=== PATIENT | female | born 1950 | race Caucasian/White ===

== ENCOUNTER 2018-03-06 21:05 | Inpatient (IN) ==
[2018-03-06] MEDS ORDERED: ONDANSETRON 4 MG/2 ML INJECTION IVP ONE (22:20)
[2018-03-06] MEDS ORDERED: NS 1,000 ML IV ONE (22:20)
[2018-03-06] MEDS ORDERED: KETOROLAC 30 MG/ML INJECTION IVP ONE (22:20)
--- NOTE | 2018-03-06 22:29 | Emergency Department Report ---
Abdominal Pain HPI - General Chief Complaint: Abdominal Pain Stated Complaint: vom, lower left abdom pain, leg cramping Time Seen by Provider: 03/06/18 22:02 Source: patient, family, RN notes reviewed, old records reviewed Mode of arrival: ambulatory Limitations: no limitations - History of Present Illness HPI narrative: 68yo woman presents to the ER for evaluation of LLQ abdominal pain. Pt ate around 1200 today; by 1330, she had severe, crampy, colicky abd pain. Pt has had similar sx intermittently for the last 5 mos. Pt has been evaluated for this by her PCM. Has had labs, colonoscopy and EGD. Pt was dx'ed with diverticulosis without -itis. No other dx made. Pt presents tonight, because her pain has caused N/V so severe that she hasn't had anything to eat since noon. Pt tried a TUMS without relief. Has not tried other meds 2/2 nausea. - Related Data Home Medications Medication Instructions Recorded Confirmed aspirin 81 mg tablet,delayed 81 mg PO DAILY tab 01/23/17 02/15/18 release multivitamin tablet 1 cap PO QAM 01/23/17 02/15/18 niacin ER 500 mg capsule,extended 500 mg PO .q HS cap 01/23/17 02/15/18 release nitrofurantoin 1 cap PO BID PRN cap 01/23/17 02/15/18 monohydrate/macrocrystals 100 mg capsule omega 6-zan-zui-fish oil 1,000 mg 3 cap PO DAILY cap 01/23/17 02/15/18 (120 mg-180 mg) capsule red yeast rice 600 mg tablet 1,200 mg PO DAILY tab 01/23/17 02/15/18 olmesartan 20 mg tablet 20 mg PO .1/2 BID tab 03/19/17 02/15/18 Flonase (Fluticasone) 50 mcg nasal 100 mcg INTRANASAL BID PRN 02/13/18 02/15/18 spray Vitamin D3 (cholecalciferol) 1,000 1,000 unit PO DAILY 02/13/18 02/15/18 unit capsule calcium carbonate 600 mg calcium 600 mg PO BID tab 02/13/18 02/15/18 (1,500 mg) tablet osteo biflex with tumeric PO BID 02/13/18 02/15/18 Previous Rx's Medication Instructions Recorded levothyroxine 112 mcg tablet 112 mcg PO DAILY #90 tab 12/11/17 Allergies Allergy/AdvReac Type Severity Reaction Status Date / Time clindamycin [From Cleocin] Allergy Verified 02/13/18 11:08 Penicillins Allergy Verified 02/13/18 11:08 sulfamethoxazole Allergy Verified 02/13/18 11:08 [From Bactrim] trimethoprim [From Bactrim] Allergy Verified 02/13/18 11:08 Review of Systems All systems: reviewed and negative except as stated Gastrointestinal: Reports: as per HPI, abdominal pain, nausea, vomiting. Denies : diarrhea, constipation, hematemesis, melena, hematochezia [facility] Patient Stated Medical History Hypertension Yes Anemia Yes Clinic Medical History Hypercholesterolemia (Chronic Medical) Hypothyroid (Chronic Medical) Hypertension (Chronic Medical) Surgical History: [id number], 1986. low back surgery-2004, 2002. Appendectomy-1969 Family History: Family History Father High blood pressure COPD (chronic obstructive pulmonary disease) Stroke Mother Alzheimer's dementia Brother Aortic dissection - Social History Smoking status: Never smoker Housing: house Household members: spouse Physical Exam - Limitations Limitations: no limitations - General General appearance: alert, in no apparent distress - Normal Exams: Head:: Normocephalic without trauma Eyes:: Pupils are PERRLA w/ EOMI, No scleral icterus, irritation, or foreign bodies noted ENMT:: No facial trauma, nasal exudates, pharyngeal erythema, or exudates are noted Neck:: Full range of motion, without adenopathy Lymphatic:: No lymphadenopathy Musculoskeletal:: No tenderness, or deformity noted Integumentary:: No rashes, hives, or bruising noted Neurological:: Patient is alert, and oriented Psychiatric:: Patient exhibits, appropriate attention - Chest Chest inspection: Present: normal inspection, symmetric chest wall rise. Absent : tenderness, rash - Respiratory Respiratory exam: Present: normal lung sounds bilaterally. Absent: respiratory distress, wheezes, stridor, prolonged expiratory phase, crackles - Cardiovascular Cardiovascular exam: Present: regular rate, normal rhythm, normal heart sounds. Absent: rubs, gallop, clicks - Abdominal Exam Abdominal exam: Present: soft, tenderness, normal bowel sounds. Absent: distention, guarding, rebound, rigidity, heel tap sign, Ortega's sign, Rovsing' s sign, tenderness at McBurney's Point, ascites Abdominal tenderness: Present: LLQ, epigastrium, moderate Course - Consultations Consultation #1: Te Telemed: Will admit inpt for SBO. Time: 00:14 Vital Signs Temperature 98.4 F 03/06/18 22:03 Pulse Rate 80 03/06/18 22:03 Respiratory Rate 18 03/06/18 22:03 Blood Pressure 108/67 03/06/18 22:03 Pulse Oximetry 96 03/06/18 22:03 Temperature 98.4 F 03/06/18 22:03 Pulse Rate 80 03/06/18 22:03 Respiratory Rate 18 03/06/18 22:03 Blood Pressure 108/67 03/06/18 22:03 Pulse Oximetry 96 03/06/18 22:03 Abdominal Pain - MDM Narrative Medical decision making narrative: Pt with SBO. Will contact hospitalist for admission for obs, NPO, and bowel rest. Hospitalist will admit for SBO. - Differential Diagnosis Differential diagnosis: Likely: abdominal pain, constipation, diverticulitis, gastroenteritis, small bowel obstruction. Unlikely: acute appendicitis, calculus of kidney, endometriosis, pancreatitis - Medical Records Attestation: I reviewed the patient's medical records. - Lab Data Attestation: I reviewed the patient's lab results. Result diagrams: 03/06/18 22:41 03/06/18 22:41 Lab Results 03/06/18 03/06/18 Range/Units 22:41 22:41 WBC 14.6 H D (4.5-11.0) T/MM3 RBC 4.01 (4.00-5.20) M/MM3 Hgb 12.6 (12-16) GM/DL Hct 36.7 (36-46) % MCV 91.5 (80-100) UM3 MCH 31.4 (26-34) UUG MCHC 34.3 (31-37) GM/DL RDW Std Deviation 43.3 (36.9-50.2) FL Plt Count 394 (130-400) T/MM3 MPV 9.4 (9.4-12.4) UM3 Immature Gran % (Auto) Not performed Neut % (Auto) Not performed Lymph % (Auto) Not performed [place] % (Auto) Not performed Eos % (Auto) Not performed Baso % (Auto) Not performed Neut # (Auto) Not performed Lymph # (Auto) Not performed [place] # (Auto) Not performed Eos # (Auto) Not performed Baso # (Auto) Not performed Abs Immat Gran (auto) Not performed Neutrophils % (Manual) 85.0 H (33-66) % Band Neutrophils % 1.0 (0-6) % Lymphocytes % (Manual) 14.0 L (23-45) % Neutrophils # (Manual) 12.4 H (1.8-7.7) T/MM3 Band Neutrophils # 0.1 T/MM3 Lymphocytes # (Manual) 2.0 (1-4.8) T/MM3 RBC Morph Comment Normal Turbidity < 20 (0-20) Sodium 137 (136-146) MEQ/L Potassium 4.1 (3.6-5) MEQ/L Chloride 103 (98-107) MEQ/L Carbon Dioxide 25 (22-30) MEQ/L Anion Gap 9 (5-15) meq/L BUN 27.0 H (7-17) MG/DL Creatinine 0.8 (0.7-1.2) mg/dL Estimated Creat Clear 50 (>50) mL/min GFR Calculation 72 (>60) mL/min BUN/Creatinine Ratio 34 H (6-26) RATIO Glucose 121 H (65-110) MG/DL Calculated Osmolality 270 (261-280) MOSM/KG Calcium 9.4 (8.4-10.2) MG/DL Icterus Index < 2 (0-7) Lipase 139 (23-300) U/L Specimen Hemolysis < 15 (0-25) - Radiology Data Attestation: I reviewed the patient's radiology results. KUB: Nonobstructing bowel gas pattern. No free air or fluid under the diaphragm. Large stool burden throughout colon. CT abd/pelv: IMPRESSION: Multiple dilated loops of small bowel out of proportion to the colon consistent with an early/incomplete small bowel obstruction with transition point in the left anterior pelvis. Disposition Clinical Impression: Small bowel obstruction Disposition: 02 To [facility] [place] Print Language: Persian Condition: Improved Prescriptions: No Action aspirin 81 mg tablet,delayed release 81 mg PO DAILY tab omega 5-ytc-orm-fish oil 1,000 mg (120 mg-180 mg) capsule 3 cap PO DAILY cap nitrofurantoin monohydrate/macrocrystals 100 mg capsule 1 cap PO BID PRN cap PRN Reason: uti red yeast rice 600 mg tablet 1,200 mg PO DAILY tab olmesartan 20 mg tablet 20 mg PO .1/2 BID tab levothyroxine 112 mcg tablet 112 mcg PO DAILY #90 tab osteo biflex with tumeric PO BID calcium carbonate 600 mg calcium (1,500 mg) tablet 600 mg PO BID tab Vitamin D3 (cholecalciferol) 1,000 unit capsule 1,000 unit PO DAILY multivitamin tablet 1 cap PO QAM niacin ER 500 mg capsule,extended release 500 mg PO .q HS cap Flonase (Fluticasone) 50 mcg nasal spray 100 mcg INTRANASAL BID PRN Referrals: Mayelin Blandon PA [Primary Care Provider] - Time of Disposition: 00:33 - Seen By: physician
[2018-03-06] MEDS: SALINE FLUSH 10ml SYRINGE IVF PRN (22:46)
[2018-03-07] MEDS ORDERED: MORPHINE SULFATE 2mg INJECTION IVP PRN (01:01)
[2018-03-07] MEDS ORDERED: BISACODYL 10 MG SUPPOSITORY RECTALLY ONE (01:01)
[2018-03-07] MEDS ORDERED: HYDROMORPHONE 2 MG/ML INJECTION IVP PRN (01:31)
--- NOTE | 2018-03-07 01:37 | History & Physical Report ---
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 Has had some intermittent pain , but not this severe and crampy. After ED pain meds still 4/10 with last BM 1400 8/ and no flatus since. Much N/V with no blood, and not nauseated now. No fevers or chills, no dysuria or cough. No CP or SOB Review of Systems All systems PM: 10-point ROS was reviewed, no additional remarkable complaints except Past Medical History Medical History: Medical History (Last Updated 03/07/18 @ 09:49 by Cristina Persaud, ALFONSO) Hypercholesterolemia (Chronic) Hypothyroid (Chronic) Hypertension (Chronic) Congenital bicuspid aortic valve Constipation Iron deficiency anemia Unintentional weight loss Surgical History: [id number], 1986. low back surgery-2004, 2002. Appendectomy-1969 Family History: Family History Father High blood pressure COPD (chronic obstructive pulmonary disease) Stroke Mother Alzheimer's dementia Brother Aortic dissection Family History: As Above (noted early CAD in father and mother dying with dementia) - Social History Smoking status: Never smoker Substance use type: does not use Housing: house Household members: spouse Medications Home Medications Medication Instructions Recorded Confirmed Type aspirin 81 mg tablet,delayed 81 mg PO DAILY tab 01/23/17 03/07/18 History release multivitamin tablet 1 cap PO QAM 01/23/17 03/07/18 History niacin ER 500 mg capsule,extended 500 mg PO .q HS cap 01/23/17 03/07/18 History release nitrofurantoin 1 cap PO BID PRN cap 01/23/17 03/07/18 History monohydrate/macrocrystals 100 mg capsule omega 3-qnq-ods-fish oil 1,000 mg 3 cap PO DAILY cap 01/23/17 03/07/18 History (120 mg-180 mg) capsule red yeast rice 600 mg tablet 1,200 mg PO DAILY tab 01/23/17 03/07/18 History olmesartan 20 mg tablet 10 mg PO BID tab 03/19/17 03/07/18 History levothyroxine 112 mcg tablet 112 mcg PO DAILY #90 tab 12/11/17 03/07/18 Rx Flonase (Fluticasone) 50 mcg nasal 100 mcg INTRANASAL BID PRN 02/13/18 03/07/18 History spray Vitamin D3 (cholecalciferol) 1,000 1,000 unit PO DAILY 02/13/18 03/07/18 History unit capsule calcium carbonate 600 mg calcium 1,200 mg PO DAILY tab 02/13/18 03/07/18 History (1,500 mg) tablet Cetirizine HCl [Zyrtec] 10 mg PO HS 03/07/18 03/07/18 History Allergies Allergy/AdvReac Type Severity Reaction Status Date / Time clindamycin [From Cleocin] Allergy Verified 03/07/18 00:45 Penicillins Allergy Verified 03/07/18 00:45 sulfamethoxazole Allergy Verified 03/07/18 00:45 [From Bactrim] trimethoprim [From Bactrim] Allergy Verified 03/07/18 00:45 hydromorphone [From Dilaudid] AdvReac Intermediate Pruritis Verified 03/07/18 13 :16 morphine AdvReac Intermediate Nausea and Verified 03/07/18 13:16 Vomiting Exam Vital Signs: Temperature 98.2 F 03/07/18 00:30 Pulse Rate 74 03/07/18 00:30 Respiratory Rate 18 03/07/18 00:30 Blood Pressure 103/63 03/07/18 00:30 Pulse Oximetry 97 03/07/18 00:30 Telemetry Rhythm: Sinus Rhythm Height/Weight/BMI: Height 1.63 m Weight 62.3 kg - Constitutional Present: mild distress - Routine HEENT Exam Head: Present: normocephalic, atraumatic Eye: Present: EOMI - Routine Respiratory Exam Present: CTA bilaterally - Routine Cardiovascular Exam Present: RRR, S1, S2, murmur Comments: 3/6 HSM LLSB murmur (she knows of MR murmur for 30 years) - Routine Abdominal Exam Present: soft Comments: hyperactive bowel sounds, not tympanitic but higher pitched. Tender but no guarding - Routine Extremities Exam Absent: cyanosis, clubbing - Routine Skin Exam Present: intact - Routine Neurological Exam Present: alert, oriented X3, CN II-XII intact Results - Labs CBC & Chem 7: 03/07/18 09:42 03/06/18 22:41 Assessment and Plan Assessment and Plan: 1. CT confirmed SBO--admit to inpatient with NPO, IVF, dulcolax supp and supportive care. If more emesis then NG to LIS. Repeat labs and this AM XR flat and upright. Certainly anatomic with prior abd surgeries but check TSH. Consult surgery prn. 2. Essential HTN--prior med 3. Dyslipidemia 4. Hypothyroidism--levothyroxine and check lab 5. Leukocytosis likely stress induced, check UA and monitor temp with repeat lab DVT prophylaxis DVT Prophylaxis: SCD's, Lovenox - Physician Narrative Physician: Loretta Donohue MD Narrative: Date: 03/07/18 Time: 1450 See note dictated earlier today for additional thoughts/updates. Hospital Course Summary Disclaimer: The visit summary below is not to be considered part of the above Progress Note.
[2018-03-07] MEDS: LR 1,000 ML IV SCH ×5 (02:09→16:32)
[2018-03-07] MEDS: SALINE FLUSH 10ml SYRINGE IVF PRN (02:09)
--- NOTE | 2018-03-07 08:06 | CT Scan Report ---
Indication: C/f SBO on KUB; WBC 14k PROCEDURE: CT abdomen pelvis w con: Encounter: Initial Comparison: October 11, 2017 Technique: Axial CT images were performed through the abdomen and pelvis after the administration of intravenous contrast. Coronal and sagittal two-dimensional reformats. Automated Exposure Control and Iterative Reconstruction dose reducing techniques were utilized. Contrast: Omnipaque 300 89 mL Findings: Mild atelectasis in the lung bases. The liver is normal. The gallbladder is unremarkable. The spleen, pancreas and adrenal glands are within normal limits. Kidneys are normal apart from a small left lower pole renal cyst. No abdominal or pelvic 950. Bladder is normal. Uterus is unremarkable. No free fluid. There are multiple fluid-filled loops of small bowel and fluid within the cecum and right colon. Transition from dilated to nondilated small bowel in the left anterior pelvis seen on axial image #70. No free air. Postoperative changes in the lower lumbar spine. Impression: Evidence of a partial small bowel obstruction with transition in the left lower pelvis. There may be a superimposed gastroenteritis. There is a preliminary report by [employer] radiologic. .
--- NOTE | 2018-03-07 08:08 | XRay Report ---
Indication: LLQ pain PROCEDURE: XR KUB w upright: Encounter: Initial Comparison: CT abdomen and pelvis from the same date Findings: Scattered air-fluid levels seen in the small and large bowel. Moderate stool in the colon. Dilated small bowel left abdomen up to 3.5 cm in diameter. Lung bases are grossly clear. Degenerative change and scoliosis in the lumbar spine with posterior L4-L5 fusion and decompression. Impression: Findings concerning for an early or partial small bowel obstruction. .
[2018-03-07 08:46] VITALS: BMI 24.3
[2018-03-07] MEDS: ENOXAPARIN 40 MG/0.4 ML INJECTION SQ SCH (09:00)
[2018-03-07] MEDS: LEVOTHYROXINE 112 MCG TABLET PO SCH (09:00)
--- NOTE | 2018-03-07 09:44 | History & Physical Report ---
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 Patient reports she has had intermittent episodes of abdominal pain since October 2017. She reports pain is often left sided. She underwent a EGD and colonoscopy in November 2017 and [address] care of Dr[address] Nicolasa Aguilar. At that time she also had a CT scan of the abdomen and pelvis. All of the studies are reported to be negative. The pain kind of " down" over the last few months. Over the past 2 weeks she has had some mild discomfort, however, significant change yesterday following lunch. She developed severe left lower quadrant abdominal pain followed by 2 episodes of vomiting. She felt like she had fever and chills at that time. Pain got so severe last evening. She presented to [facility] emergency room for acute evaluation. Only emergency room further evaluation was performed. CBC revealed leukocytosis with a white count of 18.6, 85% neutrophils, 1% band. Chemistry panel normal other than glucose of 121. LFTs and liver function is normal, lipase normal. Urinalysis unremarkable. CT scan of the abdomen and pelvis revealed evidence of a partial small bowel obstruction with transition in the left lower pelvis. She was started on IV fluids and given pain medication. She was admitted under the tele-hospitalist overnight for ongoing evaluation and treatment. Aimee is seen this morning while resting in bed. She reports she has continued left lower quadrant pain However, it is decreased now 2-3 out of 10. She also reports having an unintentional weight loss over the last 2 years. She is unsure exactly how much greater than 10 pounds. Review of Systems All systems PM: 10-point ROS was reviewed, no additional remarkable complaints except - Constitutional Constitutional: Present: chills, fever(s) - Gastrointestinal Gastrointestinal: Present: as per HPI, abdominal pain (LLQ) Past Medical History Medical History: Medical History (Last Updated 03/07/18 @ 09:49 by Cristina Persaud APRN) Hypercholesterolemia (Chronic) Hypothyroid (Chronic) Hypertension (Chronic) Congenital bicuspid aortic valve Constipation Iron deficiency anemia Unintentional weight loss Surgical History: [id number], 1986. low back surgery-2004, 2002. Appendectomy-1969. [id number] 2018-Dr. Nicolasa Aguilar. Echocardiogram- 2010. EF 60%, congenital bicuspid aortic valve with mild aortic insufficiency. Mild to moderate mitral insufficiency Family History: Family History Father High blood pressure COPD (chronic obstructive pulmonary disease) Stroke Mother Alzheimer's dementia Brother Aortic dissection Family History: As Above (noted early CAD in father and mother dying with dementia) - Social History Smoking status: Never smoker Substance use type: does not use Alcohol intake frequency: does not drink Housing: house Household members: spouse Current occupational status: retired (registered nurse) Social history: She is a retired registered nurse. She is active resides with her at home owns horses. Primary care provider-Mayelin Conrad at [facility] Medications Home Medications Medication Instructions Recorded Confirmed Type aspirin 81 mg tablet,delayed 81 mg PO DAILY tab 01/23/17 03/07/18 History release multivitamin tablet 1 cap PO QAM 01/23/17 03/07/18 History niacin ER 500 mg capsule,extended 500 mg PO .q HS cap 01/23/17 03/07/18 History release nitrofurantoin 1 cap PO BID PRN cap 01/23/17 03/07/18 History monohydrate/macrocrystals 100 mg capsule omega 4-ukr-kls-fish oil 1,000 mg 3 cap PO DAILY cap 01/23/17 03/07/18 History (120 mg-180 mg) capsule red yeast rice 600 mg tablet 1,200 mg PO DAILY tab 01/23/17 03/07/18 History olmesartan 20 mg tablet 10 mg PO BID tab 03/19/17 03/07/18 History levothyroxine 112 mcg tablet 112 mcg PO DAILY #90 tab 12/11/17 03/07/18 Rx Flonase (Fluticasone) 50 mcg nasal 100 mcg INTRANASAL BID PRN 02/13/18 03/07/18 History spray Vitamin D3 (cholecalciferol) 1,000 1,000 unit PO DAILY 02/13/18 03/07/18 History unit capsule calcium carbonate 600 mg calcium 1,200 mg PO DAILY tab 02/13/18 03/07/18 History (1,500 mg) tablet Cetirizine HCl [Zyrtec] 10 mg PO HS 03/07/18 03/07/18 History Allergies Allergy/AdvReac Type Severity Reaction Status Date / Time clindamycin [From Cleocin] Allergy Verified 03/07/18 00:45 Penicillins Allergy Verified 03/07/18 00:45 sulfamethoxazole Allergy Verified 03/07/18 00:45 [From Bactrim] trimethoprim [From Bactrim] Allergy Verified 03/07/18 00:45 hydromorphone [From Dilaudid] AdvReac Intermediate Pruritis Verified 03/07/18 13 :16 morphine AdvReac Intermediate Nausea and Verified 03/07/18 13:16 Vomiting Exam Vital Signs: Temperature 97.8 F 03/07/18 07:59 Pulse Rate 59 L 03/07/18 09:10 Respiratory Rate 20 03/07/18 07:59 Blood Pressure 107/67 03/07/18 09:10 Pulse Oximetry 97 03/07/18 07:59 Height/Weight/BMI: Height 1.63 m Weight 64.2 kg Body Mass Index 24.3 - Constitutional Present: no acute distress, well nourished, well developed - Routine HEENT Exam Eye: Present: EOMI ENT: Present: mucous membranes moist, dentition normal - Routine Respiratory Exam Present: CTA bilaterally. Absent: wheezes - Routine Cardiovascular Exam Present: RRR, S1, S2, murmur - Routine Abdominal Exam Present: soft, tenderness (left lower quadrant, left upper quadrant), non distended. Absent: normoactive bowel sounds (hypoactive bowel sounds) - Routine Extremities Exam Present: no edema, full ROM, pulses intact - Routine Back/Spine/Pelvis Exam Back/Spine: Present: full ROM - Routine Skin Exam Present: intact, dry, warm - Routine Neurological Exam Present: alert, oriented X3, CN II-XII intact, moving all extremities - Routine Psychiatric Exam Present: normal affect, normal thought process, cooperative Results - Labs CBC & Chem 7: 03/07/18 09:42 03/06/18 22:41 Assessment and Plan (1) Small bowel obstruction Current visit: Yes Status: Acute Assessment and Plan: Impression Eypyoeq-nx-Qknda bowel obstruction Leukocytosis-present on admission Left-sided abdominal pain Hypertension Congenital bicuspid aortic valve Dyslipidemia Hypothyroidism Iron def anemia Constipation Plan Patient is admitted inpatient service in the care of the hospitalist. She currently remains nothing by mouth and has received IV fluids for hydration. We will recheck a CBC this morning as she did have leukocytosis Consultation placed to Dr. Vargas for surgical evaluation and recommendations Dilaudid as needed for pain control Lovenox and SCDs to bilateral lower extremity for DVT prophylaxis Will discuss further orders and plan of care with attending, Dr. Donohue At time of discharge medical care will return to primary care provider, Mayelin Saldivar at [facility] DVT Prophylaxis: SCD's, Lovenox Resuscitation Status: Full Code - Physician Narrative Physician: Loretta Donohue MD Narrative: Date: 03/07/18 Time: 1450 I have independently evaluated and examined this patient. I reviewed the chart, the patient's history, and the SECURITY SME/PA's documented findings as above. We discussed and formulated the assessment and plan as above with additions as below: Aimee was seen midmorning at which time she described intense abdominal pain yesterday with nausea and vomiting 2 prompting ER evaluation; improvement overnight but progressive return of pain this morning. She reported having 2 small stools overnight and this morning the second of which was loose and had some bright red blood. Prior evaluation as described above. Intermittent symptoms for months with general escalation over the past 2 weeks. NAD, alert, conjunctiva clear, sclera anicteric Regular rhythm, respirations nonlabored Abdomen soft, mildly distended, tender to palpation in the left mid lateral abdomen with guarding; tinkling bowel sounds CT abdomen/pelvis reviewed by myself-multiple dilated fluid-filled loops of small bowel; fluid in the cecum and right colon; radiology describes transition zone from dilated to nondilated small bowel in the left anterior pelvis. KUBs this a.m. also reviewed by myself persistent small bowel air-fluid levels c /w SBO. Continue fluids, antiemetics, pain medications as needed. Surgical consultation- -> diagnostic laparoscopy. Discussed with Dr. Vargas. Hospital Course Summary Disclaimer: The visit summary below is not to be considered part of the above Progress Note. Hospital Course: Impression Mtcxiak-xs-Sigmn bowel obstruction Leukocytosis-present on admission Left-sided abdominal pain Hypertension Congenital bicuspid aortic valve Dyslipidemia Hypothyroidism Iron def anemia Constipation Plan Patient is admitted inpatient service in the care of the hospitalist. She currently remains nothing by mouth and has received IV fluids for hydration. We will recheck a CBC this morning as she did have leukocytosis Consultation placed to Dr. Vargas for surgical evaluation and recommendations Dilaudid as needed for pain control Lovenox and SCDs to bilateral lower extremity for DVT prophylaxis Will discuss further orders and plan of care with attending, Dr. Donohue At time of discharge medical care will return to primary care provider, Mayelin Saldivar at [facility] Addendum-taken to the operating room by Dr. Vargas.
[2018-03-07] MEDS: OLMESARTAN 20 MG TABLET PO SCH ×2 (10:02→21:20)
--- NOTE | 2018-03-07 10:03 | XRay Report ---
Indication: SBO PROCEDURE: XR abdomen 2V: Encounter: Initial Comparison: March 06, 2018 Findings: Increased overall bowel gas seen in small and large bowel. Contrast material seen in the renal collecting systems and bladder. There are persistent small bowel air-fluid levels with small bowel dilatation up to 3.2 cm, similar to the prior exam. Lung bases are clear. No free air. Impression: Persistent small bowel air-fluid levels probably due to partial small bowel obstruction. .
--- NOTE | 2018-03-07 10:25 | General Surgery Consult Note ---
Consult date: 03/07/18 Attending Physician: Loretta Donohue MD [facility] Patient Stated Medical History Hypertension Yes Anemia Yes Clinic Medical History (Last Updated 03/07/18 @ 09:49 by Cristina Persaud APRN) Hypercholesterolemia (Chronic Medical) Hypothyroid (Chronic Medical) Hypertension (Chronic Medical) Congenital bicuspid aortic valve (patient denies) (Acute Medical) Constipation (Acute Medical) Iron deficiency anemia (Acute Medical) Unintentional weight loss (Acute Medical) Medical History Updates: Sheila Valve Prolapse Surgical History: [id number], 1986. low back surgery-2004, 2002. Appendectomy-1969. Colonoscopy-normal 11/2017 Dr. Nicolasa Aguilar. EGD normal-November 2017-Dr. Nicolasa Aguilar. Echocardiogram-2010. EF 60%, congenital bicuspid aortic valve with mild aortic insufficiency. 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) Medications Home Medications Medication Instructions Recorded Confirmed Type aspirin 81 mg tablet,delayed 81 mg PO DAILY tab 01/23/17 03/07/18 History release multivitamin tablet 1 cap PO QAM 01/23/17 03/07/18 History niacin ER 500 mg capsule,extended 500 mg PO .q HS cap 01/23/17 03/07/18 History release nitrofurantoin 1 cap PO BID PRN cap 01/23/17 03/07/18 History monohydrate/macrocrystals 100 mg capsule omega 5-[id number]-[id number]-fish oil 1,000 mg 3 cap PO DAILY cap 01/23/17 03/07/18 History (120 mg-180 mg) capsule red yeast rice 600 mg tablet 1,200 mg PO DAILY tab 01/23/17 03/07/18 History olmesartan 20 mg tablet 10 mg PO BID tab 03/19/17 03/07/18 History levothyroxine 112 mcg tablet 112 mcg PO DAILY #90 tab 12/11/17 03/07/18 Rx Flonase (Fluticasone) 50 mcg nasal 100 mcg INTRANASAL BID PRN 02/13/18 03/07/18 History spray Vitamin D3 (cholecalciferol) 1,000 1,000 unit PO DAILY 02/13/18 03/07/18 History unit capsule calcium carbonate 600 mg calcium 1,200 mg PO DAILY tab 02/13/18 03/07/18 History (1,500 mg) tablet Cetirizine HCl [Zyrtec] 10 mg PO HS 03/07/18 03/07/18 History Allergies Allergy/AdvReac Type Severity Reaction Status Date / Time clindamycin [From Cleocin] Allergy Verified 03/07/18 00:45 Penicillins Allergy Verified 03/07/18 00:45 sulfamethoxazole Allergy Verified 03/07/18 00:45 [From Bactrim] trimethoprim [From Bactrim] Allergy Verified 03/07/18 00:45 Review of Systems 10-point ROS: negative except for HPI and the following: - Cardiovascular Cardiovascular: Present: palpitations (if she drinks too much caffiene ), other (murmur, vitral valve states "untreated") - Gastrointestinal Gastrointestinal: Present: blood in stools (with BM this morning, none before this morning), vomiting (yesterday), other (occasional heartburn) - Musculoskeletal Musculoskeletal: Present: back pain (occasional if she lifts too much), joint pain (hips and hands) - Neurological Neurological: Present: other (tension headaches, Migraine headache if she drinks red wine) - Vital Signs Last Vital Signs Temp 97.8 F 03/07/18 07:59 Pulse 59 L 03/07/18 09:10 Resp 20 03/07/18 07:59 BP 107/67 03/07/18 09:10 Pulse Ox 97 03/07/18 07:59 - Laboratory Result Diagrams: 03/07/18 09:42 03/06/18 22:41 General Surgery Results - Results Labs: 03/07/18 09:42 03/06/18 22:41
--- NOTE | 2018-03-07 13:45 | Anesthesia Preoperative Report ---
Anesthesia Preoperative Record - Date and Time Date: 03/07/18 Preoperative Diagnosis: SBO Proposed Procedure: Diagnostic Laparoscopy NPO Since Date: 03/07/18 NPO Since Time: 00:00 Allergies/Adverse Reactions: Allergies Allergy/AdvReac Type Severity Reaction Status Date / Time clindamycin [From Cleocin] Allergy Verified 03/07/18 00:45 Penicillins Allergy Verified 03/07/18 00:45 sulfamethoxazole Allergy Verified 03/07/18 00:45 [From Bactrim] trimethoprim [From Bactrim] Allergy Verified 03/07/18 00:45 hydromorphone [From Dilaudid] AdvReac Intermediate Pruritis Verified 03/07/18 13 :16 morphine AdvReac Intermediate Nausea and Verified 03/07/18 13:16 Vomiting - Vital Signs Vital Signs: Temperature 98.0 F 03/07/18 12:19 Pulse Rate 60 03/07/18 12:19 Respiratory Rate 16 03/07/18 12:19 Blood Pressure 123/64 03/07/18 12:19 Pulse Oximetry 97 03/07/18 12:19 Height and Weight: Height 1.63 m Weight 64.2 kg Body Mass Index 24.3 - Medications Inpatient Medications: Current Medications Enoxaparin Sodium (Lovenox) 40 mg SQ DAILY [facility] Last Admin: 03/07/18 09:00 Dose: 40 mg Hydromorphone HCl (Dilaudid) 0.25 - 1 mg IVP Q3H PRN PRN Reason: Pain Lactated Ringer's (Lactated Ringers) 1,000 mls @ 100 mls/hr IV .Q10H [facility] Last Admin: 03/07/18 12:16 Dose: Not Given Levothyroxine Sodium (Synthroid) 112 mcg PO ACB [facility] Last Admin: 03/07/18 09:00 Dose: 112 mcg Olmesartan (Benicar) 10 mg PO BID [facility] Last Admin: 03/07/18 10:02 Dose: Not Given Sodium Chloride (Iv Flush) 10 - 80 ml IVF PRN PRN PRN Reason: Flushing Last Admin: 03/07/18 02:09 Dose: 10 ml Home Medications: Home Medications Medication Instructions Recorded Confirmed Type aspirin 81 mg tablet,delayed 81 mg PO DAILY tab 01/23/17 03/07/18 History release multivitamin tablet 1 cap PO QAM 01/23/17 03/07/18 History niacin ER 500 mg capsule,extended 500 mg PO .q HS cap 01/23/17 03/07/18 History release nitrofurantoin 1 cap PO BID PRN cap 01/23/17 03/07/18 History monohydrate/macrocrystals 100 mg capsule omega 0-uir-ywz-fish oil 1,000 mg 3 cap PO DAILY cap 01/23/17 03/07/18 History (120 mg-180 mg) capsule red yeast rice 600 mg tablet 1,200 mg PO DAILY tab 01/23/17 03/07/18 History olmesartan 20 mg tablet 10 mg PO BID tab 03/19/17 03/07/18 History levothyroxine 112 mcg tablet 112 mcg PO DAILY #90 tab 12/11/17 03/07/18 Rx Flonase (Fluticasone) 50 mcg nasal 100 mcg INTRANASAL BID PRN 02/13/18 03/07/18 History spray Vitamin D3 (cholecalciferol) 1,000 1,000 unit PO DAILY 02/13/18 03/07/18 History unit capsule calcium carbonate 600 mg calcium 1,200 mg PO DAILY tab 02/13/18 03/07/18 History (1,500 mg) tablet Cetirizine HCl [Zyrtec] 10 mg PO HS 03/07/18 03/07/18 History Is Patient on Beta Cruz?: No - Medical History Respiratory: DENIES: Sleep Apnea Cardiovascular: Reports: Hypertension, High Cholesterol Neuro/Musculoskeletal: Reports: Back Problems Renal/Endocrine: Reports: Thyroid Disease - Surgical History GI Surgery/Treatments: Reports: Appendectomy Musculoskeletal Surgery/Tx: Reports: Other (RODS/SCREWS L4-L5 2004) Reproductive Surgery/Treatment: Reports: Section (X2) Anesthesia Reactions: None Hx Family Anesthesia Reaction: No History of Motion Sickness: No - Social History Smoking Status: Never smoker Hx Chewing Tobacco Use: No Second Hand Exposure: No Substance Use Type: does not use Alcohol Intake: current Alcohol Intake Frequency: holidays/special occasions only - Pertinent Findings Laboratory: CBC and BMP 03/07/18 09:42 03/06/18 22:41 BMP 03/06/18 22:41 Sodium 137 Potassium 4.1 Chloride 103 Carbon Dioxide 25 BUN 27.0 H Creatinine 0.8 Glucose 121 H Calcium 9.4 Liver Function 03/06/18 Range/Units 22:41 Total Bilirubin 1.20 (0.20-1.30) MG/DL AST 32 (14-36) U/L ALT 22 (1-35) U/L Alkaline Phosphatase 66 (38-126) U/L Albumin 4.3 (3.5-5.0) g/dL Urine 03/07/18 Range/Units 02:33 Urine Color Yellow (YELLOW) Urine Clarity Clear Urine pH 5.0 (5.0-8.0) Ur Specific [place] 1.010 L (1.015-1.025) Urine Protein Negative (NEGATIVE) Urine Glucose (UA) Negative (NEGATIVE) EKG: Sinus Rhythm - Physical Exam Respiratory Exam: Present: lungs clear Cardiovascular Exam: Present: regular rate and rhythm - Airway Assessment Mallampati Score: II TMD: 3 Fingerbreadths Neck Extension: good Overall Assessment: no airway concerns - ASA ASA Score: 2 - Plan Anesthesia: General Inhalation Gases - Discussion Discussion: Discussed risks/options/alternatives of anesthesia and questions answered. Patient consents. Nursing pain assessment noted. Present for Discussion: spouse Attestation Statement: Prior to the delivery of any anesthetic medication, I examined the patient, developed the plan, obtained the patient's consent and discussed the risk and benefits of the procedure with the patient/guardian. - Additional Information Seen by Anesthesia: Yes
[2018-03-07] MEDS ORDERED: BUPIVACAINE 0.5%/EPI 1:200,000 INJ 30ml SDV ONE (14:07)
[2018-03-07] MEDS ORDERED: ROCURONIUM 50 MG/5 ML INJECTION IVP ONE (14:09)
[2018-03-07] MEDS ORDERED: SUCCINYLCHOLINE 20mg/mL 10mL INJECTION ONE (14:09)
[2018-03-07] MEDS ORDERED: MIDAZOLAM 2mg/2ml INJECTION ONE (14:11)
[2018-03-07] MEDS ORDERED: FentaNYL 250 MCG/5 ML INJECTION ONE (14:11)
[2018-03-07] MEDS ORDERED: EPHEDRINE 50mg/ml INJECTION ONE (14:19)
[2018-03-07] MEDS ORDERED: BUPIVACAINE 0.5%/EPI 1:200,000 INJ 30ml SDV INFIL ONE (14:24)
[2018-03-07] MEDS ORDERED: ONDANSETRON 4 MG/2 ML INJECTION IVP PRN (14:30)
[2018-03-07] MEDS ORDERED: DiphenhydrAMINE 50 MG/ML INJECTION IVP PRN (14:30)
[2018-03-07] MEDS ORDERED: ACETAMINOPHEN IV 1,000 MG/100 ML VIAL IV ONE (14:31)
--- NOTE | 2018-03-07 15:26 | Operative Note ---
DATE OF CONSULTATION 03/07/2018 FINDINGS Mrs. Peters is a 68-year-old female whom I was asked to see today as a result of her history and physical findings of abdominal pain in conjunction with an abnormal CT scan obtained last evening indicative of high-grade small-bowel obstruction. Mrs. Peters informs me that she has been having pain now intermittently for several months. The patient states that over the last five months or so she has been experiencing intermittent abdominal pain. This pain is described as being more so within her left lower quadrant. Pain is made worse after eating. She has had several episodes throughout the last several months where she has had a component of nausea and vomiting after eating. She has undergone a prior EGD and colonoscopy in [place] as a result of her history for intermittent abdominal pain. The patient states her EGD and colonoscopy were normal. The patient states that throughout this week she has had a component of abdominal pain made worse after eating. Pain has been present more so again within her left lower quadrant. Patient states that yesterday she developed significant vomiting and 10 out of 10 pain and therefore presented to our emergency room for further evaluation. The patient did undergo a CT scan which, as stated above, was consistent with that of a partial small-bowel obstruction. Patient subsequently was admitted for further evaluation. Patient states that earlier her pain had improved. Patient states that this morning, however, her pain has become more severe in nature once again. PAST MEDICAL HISTORY, PAST SURGICAL HISTORY, MEDICATIONS, ALLERGIES, SOCIAL HISTORY, FAMILY HISTORY, REVIEW OF SYSTEMS Performed by my nurse practitioner, Con Oconnell APRN. PHYSICAL EXAMINATION GENERAL: Mrs. Peters is a 68-year-old female who did not appear to be in acute distress. VITAL SIGNS: Temperature 97.8, pulse 59, respirations 20, blood pressure 107/67 , SAO2 97% on room air. HEENT: Normocephalic. Pupils are equally round and react to light and accommodation. NECK: Supple without lymphadenopathy. CHEST: Clear to auscultation bilaterally. HEART: Auscultation of her heart did reveal a murmur. Normal S1 and S2. ABDOMEN: Visualization of the abdomen does reveal a well-healed prior surgical incision within her right lower quadrant of her abdomen consistent with a prior history for appendectomy. No other visible abnormalities were noted. Palpation of the abdomen did reveal a fair amount of tenderness throughout the entire abdomen. Pain seemed to be worse, however, with palpation in the left lower quadrant. Did have a component of voluntary guarding. Did not appreciate any evidence, however, for involuntary guarding or rebound tenderness. EXTREMITIES: Without clubbing, cyanosis, or edema. NEURO: Cranial nerves II-XII grossly intact. Patient is without focal motor or sensory deficits. LABORATORY/RADIOGRAPHIC EVALUATION The patient had a CBC obtained yesterday and her white count was 14,000. Today her white count is 7.5. Hemoglobin is 10.4. CMP was obtained and found to be without marked abnormalities with exception that her BUN was elevated at 27.0. UA was obtained and found to be essentially within normal limits. CT scan of her abdomen and pelvis was obtained. I did review a prior CT scan from October of this year as well as a CT scan from last evening. The CT scan of October did not reveal any marked abnormalities. The CT scan yesterday did reveal marked small bowel distention with an obvious transition zone being noted within the lower abdomen. Radiology stated a transition zone was present from dilated and nondilated small bowel within the left anterior pelvis. There was no evidence for free air. Findings were consistent with a partial small- bowel obstruction with transition in the left lower pelvis. ASSESSMENT 68-year-old female with five-month history of intermittent abdominal pain who presents with onset of severe abdominal pain, nausea, vomiting and CT scan evidence for small bowel obstruction. PLAN Diagnostic laparoscopy, possible laparotomy. I informed the patient that as a general rule when someone presents with a suspected partial small-bowel obstruction I attempt to initially proceed with what I call a "Gastrografin challenge" where I will give the patient Gastrografin to see if it does progress through her small bowel and into her colon. In her situation, however, I do not feel that this would be the best course of action. Given her chronicity of pain over the last five months and her obvious CT scan that does reveal massively dilated small bowel proximally and normal small bowel distally, I do feel that there is an intraabdominal process present that has been causing her symptomatology over the last five months. Specifically, I do feel that she likely has an abdominal adhesion resulting in high-grade small-bowel obstruction. It was therefore my recommendation that we go ahead today and proceed with a diagnostic laparoscopy , possible laparotomy, with probable lysis of adhesions. I did discuss in detail with the patient what this procedure would entail and its associated risks which included but were not inclusive of bleeding, infection, as well as potential for bowel resection and injury to adjacent structures. The patient understood and agreed with the proposed plan at this time. MASON
[2018-03-07] MEDS ORDERED: MetroNIDAZOLE PB 500 MG/100 ML BAG IV ONE (16:30)
[2018-03-07] MEDS ORDERED: DEXAMETHASONE 4 MG/ML INJECTION ONE (16:45)
[2018-03-07] MEDS ORDERED: ONDANSETRON 4 MG/2 ML INJECTION ONE (16:45)
[2018-03-07] MEDS ORDERED: SUGAMMADEX 200mg/2ml INJECTION IVP ONE (16:45)
[2018-03-07] MEDS ORDERED: HYDROMORPHONE 2 MG/ML INJECTION ONE (16:52)
--- NOTE | 2018-03-07 17:09 | General Surgery Procedure Note ---
Date of Procedure: 03/07/18 Surgeon: Sam Editing Internship: Con Clement APRN Postoperative Diagnosis: Small Bowel Obstruction Procedure: diagnostic laparoscopy with conversion to open laparotomy and small bowel resection Estimated Blood Loss: See Anesthesia Record.
[2018-03-07] MEDS ORDERED: ONDANSETRON ODT 4 MG TABLET PO PRN (17:17)
--- NOTE | 2018-03-07 17:29 | Anesthesia Postoperative Note ---
- Date and Time Date: 03/07/18 Time: 17:29 - Status Patient Participated in Evaluation: Patient Participated in Person Vital Signs: Temperature 98.4 F 03/07/18 17:05 Pulse Rate 63 03/07/18 17:25 Respiratory Rate 12 03/07/18 17:25 Blood Pressure 100/58 03/07/18 17:25 Pulse Oximetry 94 03/07/18 17:25 Respiratory Function: Airway Patent Cardiovascular Function: Regular Pulse EKG: Sinus Rhythm Mental Status: Alert and Oriented Pain Intensity: 4 Hydration: IV Infusing Nausea/Vomiting: None Complications During Recover: None Apparent - Follow-Up Instructions Instructions: Per Surgeon
[2018-03-07] MEDS: METOCLOPRAMIDE 10mg/2ml INJECTION IVP PRN (17:30)
[2018-03-07] MEDS: NS 1,000 ML IV SCH ×2 (18:07→22:45)
[2018-03-07] MEDS: KETOROLAC 15 MG/ML INJECTION IVP PRN (22:03)
[2018-03-07] MEDS: D5-1/2NS 1,000 ML IV SCH (22:47)
[2018-03-08] MEDS: HYDROMORPHONE 2 MG/ML INJECTION IVP PRN ×5 (01:01→20:21)
[2018-03-08] MEDS: SALINE FLUSH 10ml SYRINGE IVF PRN (07:50)
[2018-03-08] MEDS: D5-1/2NS 1,000 ML IV SCH (07:50)
[2018-03-08] MEDS: ONDANSETRON 4 MG/2 ML INJECTION IVP PRN ×2 (08:45→16:49)
[2018-03-08] MEDS: ENOXAPARIN 40 MG/0.4 ML INJECTION SQ SCH (10:00)
[2018-03-08] MEDS: PANTOPRAZOLE 40 MG INJECTION IVP SCH (10:00)
[2018-03-08] MEDS: KETOROLAC 15 MG/ML INJECTION IVP PRN ×2 (10:00→16:49)
[2018-03-08] MEDS: METOCLOPRAMIDE 10mg/2ml INJECTION IVP PRN ×2 (11:08→19:14)
--- NOTE | 2018-03-08 11:12 | Operative Note ---
DATE OF SERVICE 03/07/2018 SURGEON Chan Vargas MD CARPET MECHANIC Lemuel Clement MD PREOPERATIVE DIAGNOSIS Abnormal CT scan revealing radiographic evidence for small bowel obstruction, abdominal pain. POSTOPERATIVE DIAGNOSIS Abnormal CT scan revealing radiographic evidence for small bowel obstruction, abdominal pain, intraabdominal adhesion, multiple small bowel mucosal-based lesions resulting in component of stenosis/narrowing. PROCEDURE Diagnostic laparoscopy, conversion to open laparotomy with lysis of adhesion, segmental small bowel resection with primary anastomosis. ANESTHESIA General endotracheal anesthesia. EBL/FLUIDS Please see chart. BRIEF HISTORY/INDICATIONS Mrs. Peters is a 68-year-old female whom I was asked to see earlier today in consultation. Upon questioning the patient she states that she has been experiencing a fair amount of abdominal pain intermittently over the last four to five months. She states that she has undergone a prior CT scan as well as a prior EGD and colonoscopy that has have not revealed any obvious abnormalities to explain her ongoing abdominal pain. Patient states that she has had a component of abdominal pain throughout the last four to five days that has been fairly persistent. The patient states that yesterday the pain became quite severe and was "10 out of 10 pain." She did present to the emergency room and was found to have radiographic evidence for a small-bowel obstruction with significantly dilated small bowel being noted within the right midabdomen and a transition zone being noted within the lower abdomen with normal-appearing collapsed distal small bowel. Upon physical examination the patient was found to be quite tender throughout her abdomen. As a result of the above indications it was recommended that she undergo surgical intervention. For completeness please refer to notes included in the patient's chart. FINDINGS Upon laparoscopy the liver edge was smooth without nodularities. The omentum and peritoneal surfaces which were visualized were within normal limits. Omentum was lifted in a cephalad fashion and then one could see a segment of small bowel that had coursed beneath an adhesive band between the cecum and the right pelvis. There was not, however, an obvious transition zone at this location. The bowel did not appear to be edematous that was behind this adhesive band. The bowel was able to be grasped and brought forth out from beneath the adhesive band without difficulty. One could not say with certainty that this adhesive band was the underlying etiology for her abdominal pain. I therefore elected to proceed with a formal laparotomy. Upon laparotomy the liver edge was smooth without nodularities. The gallbladder was without palpable stones. Stomach was without palpable abnormalities. Colon contained a fair amount of stool throughout but was without obvious mass. Small bowel was carefully inspected from the ligament of Treitz to the terminal ileum. Upon running the small bowel there was a segment within the proximal ileum where one could feel several apparent mucosal-based nodularities. At these areas there did appear to be area of narrowing of the small bowel. There was, however, no evidence for mesenteric fat creeping to suggest underlying Crohn's disease. One could see an indentation of the actual small bowel, especially along the mesenteric side where these small 1-2 cm areas of fibrosis and nodularities were noted within the small bowel. These areas were concerning in nature but did not appear to be the result of an underlying neoplastic process. Given this somewhat unique finding I did have one of my senior surgical colleagues come into the operative suite for further evaluation. After some discussion it was concluded that we would go ahead and resect one of these palpable abnormalities and submit it for frozen section. About an 8-10 cm segment of small bowel was removed that contained three separate nodularities within it. One could feel a band-like structure that was circumferential in nature at these three areas of concern. A marking suture was placed along the antimesenteric segment of small bowel for orientation purposes for the pathologist. This segment was resected and I did open a portion of the small bowel on the back table. One could see a fibrous ring-like structure within the small bowel that appeared to be narrowing the lumen as it was being opened. As one transected through the small bowel with curved Brink scissors one could ascertain that the bowel was indeed thickened at this web-like area and there was more resistance as the bowel was resected at this location. This was submitted for pathologic evaluation. Pathology stated that there was no type of underlying malignancy present. The pathologist felt that this was consistent with an ulceration of the mucosa. I then contemplated how best to proceed with leaving the remaining areas of concern intact and performing a primary anastomosis or proceeding with additional resection of the additional abnormalities that were noted. I elected to go ahead and proceed with additional resection of the palpable abnormalities that were present. Approximately two feet of small bowel were resected and a primary anastomosis was performed without incident. It was my intuition that the intraoperative findings may have been consistent with small bowel diaphragm disease. NARRATIVE OF PROCEDURE After informed consent was obtained the patient was brought to the operative suite and placed on the table in supine fashion. The abdomen was then prepped and draped in sterile fashion. Formal timeout was then completed. Next, 0.5% Marcaine with epinephrine was injected just above the level of the umbilicus. A 2-cm curved incision was made through the area of analgesia. Dissection was carried down into the deep subcuticular tissues and underlying fascia. The fascia was then grasped with two Asia clamps and retracted anteriorly. A 1- cm incision was made between the two Asia clamps. A hemostat was then introduced into the fascial incision and gently spread. U-stitch was placed with 0 Vicryl. A 12-mm Julia port was then placed into the peritoneal cavity and pneumoperitoneum was established to a patient pressure of 15 mmHg utilizing carbon dioxide. Next, two additional 5-mm ports were then placed under direct visualization within the left upper quadrant and right upper quadrant. Each port site was preinjected with 0.5% Marcaine with epinephrine and placed under direct visualization. The abdominal cavity was explored via the laparoscope. Initially one could see the liver which was smooth and without nodularities. Peritoneal surfaces were without evidence for peritoneal studding and were smooth throughout. The omentum that covered the small bowel and colon was without noted abnormalities. Attention was then focused to the right side of the abdomen. One could then see an adhesive band between the cecum and the right lateral pelvic wall. There were perhaps about two to three feet of small bowel that was beneath this adhesive band. The adhesive band itself, however, did not appear to be causing an obvious small bowel obstruction. There was not a transition point present at this location. Utilizing a Wavy grasper, the small bowel that was behind this adhesion was able be grasped and pulled back from beneath the adhesion without any difficulty. Small bowel was run from the ligament of Treitz to the terminal ileum laparoscopically. No visible abnormalities were noted. Given the absence of definitive findings upon laparoscopy I elected to proceed with conversion to a formal laparotomy. Laparoscope and ports were removed. A standard midline incision was then made from above and below the umbilicus. Underlying subcutaneous tissues, fascia, and peritoneum were opened to the extent of the incision. Codman retractor was then placed to provide adequate exposure. Attention was first focused to the right upper quadrant. Liver was palpated and found to be smooth and without nodularities. The gallbladder was palpated and without stones. Palpation was undertaken of the stomach. Stomach was without visible or palpable abnormalities. Colon was palpated throughout. There was a fair amount of stool within the colon but no obvious mass was noted within the ascending, transverse colon or descending colon. Next, the ligament of Treitz was identified and small bowel was carefully run from the ligament of Treitz to the terminal ileum. Involving the proximal ileum I could feel about five to six small mucosal-based processes that were about 1 to 1.5 cm in greatest diameter. One could feel an obvious thickening of the small bowel at these locations. These areas involved about a two foot segment of small bowel. Visibly there was no evidence for mesenteric fat creeping to suggest underlying Crohn's disease. There was no evidence for significant serosal "puckering" to suggest an underlying neoplastic process. Along the mesenteric border where these areas of thickening and fibrosis were noted one could, however, see an indentation of the small bowel visibly. Additionally, upon palpation the lumen did appear to be narrowed at these locations. I questioned whether or not the patient may have small bowel diaphragm disease. I then elected to call my surgical colleague for additional intraoperative opinion/consultation. Dr. Clement did reexplore the abdomen with me and I did demonstrate to him this adhesive band within the cecum as well as these palpable abnormalities within the small bowel. He concurred that there was indeed underlying pathology present within the small bowel that I had noted previously. We then elected to go ahead and proceed with a limited resection of a few of these palpable abnormalities involving the proximal ileum. A segment about 8-10 cm in length was resected. There were three palpable areas within this segment where it did appear that the small bowel lumen was narrowed and one could feel marked thickening at three separate locations. Sutures were placed along the antimesenteric border of these palpable areas of concern for pathologic orientation purposes. Mesentery to this segment of bowel was then divided sequentially between right angle clamps and ligated with 3-0 Vicryl ties. A GIA75 stapler was then placed proximal and distal to these three palpable areas of concern and fired. This segment of bowel that was then resected was inspected on the back Laurier table. Utilizing a curved Brink scissors I did transect a portion of the antimesenteric portion of the small bowel. As one transected through one of these areas of concern one could appreciate that the bowel was thicker in nature at this location and increased resistance was met as the Brink scissors transected through this area of concern. Visibly one could see a fibrous ring-like area involving the mucosa. I did not see any evidence for jack ulcerations. This segment was submitted for pathologic evaluation via frozen section. Pathology returned stating that there was no type of underlying malignant process present and that they could see pathologically ulcerations of the mucosa. Then I contemplated proceeding with a primary anastomosis versus going ahead and proceeding with additional resection of the other areas of palpable concern. It was my intuition that the patient may be suffering from small bowel diaphragm disease with web-like areas being present within the small bowel resulting in a component of obstruction and increased pain after eating consistent with the patient's clinical history. I therefore elected to go ahead and proceed with resection of the additional palpable abnormalities that were proximal and distal to the area of concern. A total length of about two feet of small bowel was resected. A "marking suture" was placed upon the most proximal palpable abnormality within the small bowel as well as an additional "marking suture" of the most palpable distal abnormality noted within the small bowel. This involved about a two feet segment of small bowel in total. A point just proximal to the most palpable abnormalities was then ascertained upon the mesentery. Mesentery was opened at this location and a GIA75 stapler was placed across the small bowel at this location and fired. A point just distal to the most distal palpable abnormality was then ascertained upon the mesentery and a hemostat was then placed within the mesentery at this location and gently spread. A GIA75 stapler was then placed across this location and fired. The mesentery to these segments of small bowel was then divided sequentially between right angle clamps and ligated with 3-0 Vicryl ties. Next, attention was directed towards performing a primary anastomosis. Antimesenteric portions were aligned to one another by placing a few single interrupted sutures of 3-0 Vicryl just proximal to the staple line as well as an additional interrupted suture 7-8 cm beyond the staple line. Enterotomies were then performed along the antimesenteric portion of the staple line and a GIA75 stapler was then placed within the proximal and distal segments of small bowel and aligned along the antimesenteric border and fired. GIA75 stapler was then reloaded and placed transversely across the prior transverse staple line excluding the prior enterotomy and fired. This resulted in a completed functional [id number] anastomosis. Palpation revealed the anastomosis to be widely patent. Single Lembert sutures were then placed along the apex of the transverse staple line resulting in the end of the staple lines being inverted in nature. Staple lines were inspected and found to be hemostatic and completely intact in nature. Next, I had my assistant boiler operator then grasp the small bowel distal to the anastomosis. I advanced small bowel contents through the anastomosis until the anastomosis was fairly taut with small bowel contents. There was no evidence of extravasation of the small bowel contents through the anastomosis. Anastomosis was widely patent. No evidence for vascular compromise. Small bowel was returned back into the peritoneal cavity. The prior adhesion between the cecum and the pelvis was then transected and excised in its entirety. Instrument, sponge and needle counts was performed and found to be correct. Attention was directed towards closure. New instruments, gowns and gloves were obtained. Fascia was closed in a running fashion with #1 PDS suture. Skin and subcutaneous tissues were then irrigated with Betadine. Skin was then closed with gerri. The patient was awakened from her anesthetic and sent back to recovery room once deemed in stable condition. MASON
--- NOTE | 2018-03-08 11:17 | Progress Note ---
DATE OF SERVICE 03/08/2018 FINDINGS Mrs. Peters was seen this morning on rounds. She had a component of some nausea. Otherwise, patient without complaints. PHYSICAL EXAM VITAL SIGNS: Afebrile, slightly hypotensive this morning. Please refer to EMR. CHEST: Clear to auscultation bilaterally. HEART: Regular rate and rhythm. Normal S1 and S2 without gallops, murmurs or clicks. ABDOMEN: Palpation of the abdomen revealed it to be soft with some incisional tenderness this morning. No evidence for guarding or rebound. LABORATORY/RADIOGRAPHIC EVALUATION Patient had a CBC today and her white count was slightly elevated at 13,000, most likely a result of a stress response from surgery. Hemoglobin stable at 10.1. Bandemia is present again, most likely a result of stress from surgery. BMP obtained and found to be within normal limits. ASSESSMENT 68-year-old female status post exploratory laparotomy with lysis of adhesions, small-bowel resection. Overall, patient doing well. PLAN Continue with current care. Will continue to monitor the patient's blood pressure. Overall I am pleased with the patient's appearance on postop day #1. MASON
--- NOTE | 2018-03-08 12:15 | Progress Note ---
- Date 03/08/18 Subjective: Aimee underwent segmental small bowel resection with primary anastomosis yesterday for SBO. She reports having some nausea and abdominal discomfort this morning but feels as though her bowels are "waking up" although she's passed no gas this morning. She denied dyspnea but reports having a minor cough. She complains of a headache which she attributes to hospital pillows and perhaps not taking her blood pressure medication overnight. She denies lightheadedness has had no fever. Objective Vital signs: Temperature 98.6 F 03/08/18 08:45 Pulse Rate 62 03/08/18 08:45 Respiratory Rate 24 03/08/18 08:50 Blood Pressure 88/55 03/08/18 08:45 Pulse Oximetry 95 - RA 03/08/18 08:45 I/O 5101/918 NAD, alert Conjunctiva clear, sclera anicteric, oropharynx clear Respirations nonlabored, good airflow, breath sounds clear anteriorly Regular rhythm, S1-S2, soft systolic murmur heard throughout the precordium Abdomen soft, mild generalized abdominal tenderness, bowel sounds Extremities without edema MAEW Rhythm: Normal Sinus Rhythm Height/Weight/BMI: Height 1.63 m Weight 67.3 kg Body Mass Index 24.3 Results - Labs CBC & Chem 7: 03/08/18 04:09 03/08/18 04:09 Labs: S79 B12 L9 TSH 0.56 Assessment and Plan (1) Small bowel obstruction Current visit: Yes Status: Acute Assessment and Plan: Impression Small bowel obstruction s/p laparotomy with small bowel resection 03/08/18 Leukocytosis-present on admission Left-sided abdominal pain Hypertension Congenital bicuspid aortic valve Dyslipidemia Hypothyroidism Iron def anemia Constipation Hyponatremia-03/08/18 Hyperglycemia-03/08/18 Plan Mild nausea and abdominal discomfort postoperatively; adequately managed with current medications. Blood pressure low normal overnight-fluid bolus being given this morning to stabilize. Persistent leukocytosis; afebrile; no intraoperative findings to suggest an infectious process. Nothing by mouth at present. Warm packs/cold packs added for symptomatic management of headache/neck discomfort. Mild hyponatremia has developed-adjust fluids to prevent further sodium loss. Discontinue D5 in fluids due to hyperglycemia DVT Prophylaxis: SCD's, Lovenox Resuscitation Status: Full Code - Physician Narrative Narrative: Date: 03/08/18 Time: 1212 Hospital Course Summary Disclaimer: The visit summary below is not to be considered part of the above Progress Note. Hospital Course: 03/07/18 Patient is admitted inpatient service in the care of the hospitalist. She currently remains nothing by mouth and has received IV fluids for hydration. We will recheck a CBC this morning as she did have leukocytosis Consultation placed to Dr. Vargas for surgical evaluation and recommendations Dilaudid as needed for pain control Lovenox and SCDs to bilateral lower extremity for DVT prophylaxis Will discuss further orders and plan of care with attending, Dr. Donohue At time of discharge medical care will return to primary care provider, Mayelin Saldivar at [facility] Addendum-taken to the operating room by Dr. Vargas. 03/08/18 s/p laparotomy with segmental small bowel resection 03/08/18. Mild nausea and abdominal discomfort postoperatively; adequately managed with current medications. Blood pressure low normal overnight-fluid bolus being given this morning to stabilize. Persistent leukocytosis; afebrile; no intraoperative findings to suggest an infectious process. Nothing by mouth at present. Warm packs/cold packs added for symptomatic management of headache/neck discomfort. Mild hyponatremia has developed-adjust fluids to prevent further sodium loss. Discontinue D5 in fluids due to hyperglycemia
[2018-03-08] MEDS: OLMESARTAN 20 MG TABLET PO SCH ×2 (13:14→20:50)
[2018-03-08] MEDS: LEVOTHYROXINE 112 MCG TABLET PO SCH (13:15)
[2018-03-08] MEDS: NS with KCL 20 mEq 1,000 ML IV SCH ×2 (13:52→22:30)
[2018-03-09] MEDS: KETOROLAC 15 MG/ML INJECTION IVP PRN ×4 (03:32→23:42)
[2018-03-09] MEDS: LEVOTHYROXINE 112 MCG TABLET PO SCH (05:39)
[2018-03-09] MEDS: NS with KCL 20 mEq 1,000 ML IV SCH ×3 (06:24→17:35)
[2018-03-09] MEDS: ENOXAPARIN 40 MG/0.4 ML INJECTION SQ SCH (08:14)
[2018-03-09] MEDS: PANTOPRAZOLE 40 MG INJECTION IVP SCH (08:15)
[2018-03-09] MEDS: OLMESARTAN 20 MG TABLET PO SCH ×2 (08:16→20:37)
--- NOTE | 2018-03-09 12:02 | Progress Note ---
- Date 03/09/18 Subjective: Aimee reports mild generalized abdominal pain which worsens with inspiration or movement. She's had no nausea or vomiting and has not passed gas or had a bowel movement since surgery. She denied dyspnea, palpitations, or flatus. Headache has resolved. Romero catheter remains in with improved urine output in the past 24 hours. Blood pressure was stable overnight. Objective Vital signs: Temperature 98.6 F 03/08/18 20:03 Pulse Rate 72 03/09/18 11:31 Respiratory Rate 25 H 03/09/18 10:30 Blood Pressure 137/75 03/09/18 10:00 Pulse Oximetry 97 - RA 03/09/18 10:30 I/O 3982/1747 NAD, alert, fluent speech Oropharynx clear, conjunctiva clear, sclera anicteric, conjugate gaze Respirations nonlabored, good airflow, breath sounds clear anteriorly Regular rhythm, S1-S2, soft systolic murmur Abdomen soft, mild tenderness to palpation but bowel sounds present Extremities without edema Rhythm: Normal Sinus Rhythm Height/Weight/BMI: Height 1.63 m Weight 69.5 kg Body Mass Index 24.3 Results - Labs CBC & Chem 7: 03/09/18 03:58 03/09/18 03:58 Labs: Calcium 7.6, phosphorus 2.1, albumin 2.5 Assessment and Plan (1) Small bowel obstruction Current visit: Yes Status: Acute Assessment and Plan: Impression Small bowel obstruction s/p laparotomy with small bowel resection 03/08/18 Leukocytosis-present on admission Left-sided abdominal pain Hypertension Congenital bicuspid aortic valve Dyslipidemia Hypothyroidism Iron def anemia Constipation Hyponatremia-03/08/18 Hyperglycemia-03/08/18 Hypophosphatemia-03/09/18 Plan Mild abdominal discomfort postoperatively; adequately managed with current medications. Blood pressure has stabilized with supplemental fluids yesterday with corresponding improvement in urine output. Remains nothing by mouth pending return of bowel function. Hyponatremia has resolved as has hyperglycemia with fluid modifications. Mild hypocalcemia and hypophosphatemia; calcium corresponds to low albumin. Anticipate improvement with resumption of calcium/vitamin D supplements and oral intake and upcoming days. Discontinue Romero catheter Stable to transfer out of ICU today. Discussed with Dr. Vargas and nursing. DVT Prophylaxis: SCD's, Lovenox GI Prophylaxis: Protonix Resuscitation Status: Full Code - Physician Narrative Narrative: Date: 03/09/18 Time: 1156 Hospital Course Summary Disclaimer: The visit summary below is not to be considered part of the above Progress Note. Hospital Course: 03/07/18 Patient is admitted inpatient service in the care of the hospitalist. She currently remains nothing by mouth and has received IV fluids for hydration. We will recheck a CBC this morning as she did have leukocytosis Consultation placed to Dr. Vargas for surgical evaluation and recommendations Dilaudid as needed for pain control Lovenox and SCDs to bilateral lower extremity for DVT prophylaxis Will discuss further orders and plan of care with attending, Dr. Donohue At time of discharge medical care will return to primary care provider, Mayelin Saldivar at [facility] Addendum-taken to the operating room by Dr. Vargas. 03/08/18 s/p laparotomy with segmental small bowel resection 03/08/18. Mild nausea and abdominal discomfort postoperatively; adequately managed with current medications. Blood pressure low normal overnight-fluid bolus being given this morning to stabilize. Persistent leukocytosis; afebrile; no intraoperative findings to suggest an infectious process. Nothing by mouth at present. Warm packs/cold packs added for symptomatic management of headache/neck discomfort. Mild hyponatremia has developed-adjust fluids to prevent further sodium loss. Discontinue D5 in fluids due to hyperglycemia 03/09/18 Blood pressure stable and urine output improved; stable to transfer out of ICU. Discontinue Romero catheter, remains nothing by mouth pending return of bowel function.
[2018-03-10] MEDS: LEVOTHYROXINE 112 MCG TABLET PO SCH (06:13)
[2018-03-10] MEDS: NS with KCL 20 mEq 1,000 ML IV SCH ×2 (06:19→08:24)
[2018-03-10] MEDS: PANTOPRAZOLE 40 MG INJECTION IVP SCH (08:31)
[2018-03-10] MEDS: KETOROLAC 15 MG/ML INJECTION IVP PRN (08:32)
[2018-03-10] MEDS: ENOXAPARIN 40 MG/0.4 ML INJECTION SQ SCH (08:38)
[2018-03-10] MEDS: OLMESARTAN 20 MG TABLET PO SCH ×3 (08:40→21:00)
--- NOTE | 2018-03-10 08:48 | Progress Note ---
DATE 03/09/2018 FINDINGS Mrs. Peters was seen this morning on rounds. She denied nausea. States that overall she is feeling significantly better in comparison to yesterday. Still experiencing a component of incisional discomfort. Did have a small amount of flatus. OBJECTIVE VITALS: Afebrile. Normotensive. Please refer to EMR. CHEST: Clear to auscultation bilaterally. HEART: Regular rate and rhythm. Normal S1, S2, without gallops, murmurs or clicks. ABDOMEN: Soft. Minimal incisional tenderness. No evidence for guarding or rebound. LABORATORY/RADIOGRAPHIC EVALUATION Patient had a CBC today and her white count was 8.9. Hemoglobin stable at 0.8. BMP obtained and found to be without marked abnormalities. ASSESSMENT 68-year-old female status post exploratory laparotomy with small bowel resection and primary anastomosis. Patient doing well from a clinical standpoint. PLAN Transfer to floor. Advance to clear liquids. Continue with current care. CAROLYN Romero. MASON
--- NOTE | 2018-03-10 10:50 | Progress Note ---
- Date 03/10/18 Subjective: Aimee is very tired - she was up every hour to urinate through the night. Otherwise she's doing well. Her pain is well-controlled. She's had no nausea and is passing flatus. She denies dyspnea or dizziness or chest pain. She inquires about when her diet can be advanced. Objective Vital signs: Temperature 98.1 F 03/10/18 07:39 Pulse Rate 64 03/10/18 07:39 Respiratory Rate 16 03/10/18 07:39 Blood Pressure 139/65 03/10/18 07:39 Pulse Oximetry 97 03/10/18 07:39 Rhythm: Normal Sinus Rhythm Height/Weight/BMI: Height 1.63 m Weight 65 kg Body Mass Index 24.3 - Constitutional Present: no acute distress, well nourished, well developed - Routine HEENT Exam Head: Present: normocephalic Eye: Present: PERRL. Absent: conjunctival icterus, scleral injection ENT: Present: mucous membranes moist, oropharynx clear - Routine Respiratory Exam Present: CTA bilaterally - Routine Cardiovascular Exam Present: RRR, S1, S2, murmur (4/6) - Routine Abdominal Exam Present: soft, normoactive bowel sounds, non distended Comments: dressing c/d/i - Routine Extremities Exam Present: no edema - Routine Musculoskeletal Exam Musculoskeletal: Present: no clubbing or cyanosis - Routine Skin Exam Present: intact, dry, warm - Routine Neurological Exam Present: alert, oriented X3, CN II-XII intact, moving all extremities, vision grossly intact, hearing grossly intact, normal speech. Absent: sensory deficit , motor deficit, altered mental status, facial asymmetry - Routine Psychiatric Exam Present: normal affect, normal thought process, cooperative Results - Labs CBC & Chem 7: 03/10/18 04:14 03/10/18 04:14 Assessment and Plan Assessment and Plan: Impression Small bowel obstruction s/p laparotomy with small bowel resection 03/08/18 Leukocytosis-present on admission Left-sided abdominal pain Hypertension Congenital bicuspid aortic valve Dyslipidemia Hypothyroidism Iron def anemia Constipation Hyponatremia-03/08/18 Hyperglycemia-03/08/18 Hypophosphatemia-03/09/18 Plan d/w Dr. Vargas - ok to advance diet to full liquids DC IVF with improved oral intake of liquids. Hgb stable @ 9.5 Calcium improving. DVT Prophylaxis: SCD's, Lovenox GI Prophylaxis: Protonix Resuscitation Status: Full Code - Time spent with patient Time with patient PN: 25 minutes - Physician Narrative Physician: Alfie Kumar MD Narrative: Date: 03/10/18 Time: 1856 Have independently interviewed and examined pt. Chart reviewed. Case discussed with my WIRE WALKER. Care plan developed with my supervision; agree with above. Had good day today. Tolerating foods-eating about 1/2 of meal as did get ab fullness with eating. No nausea. Pain controlled. Passing flatus. Breathing well. Happy that IVF is stop as was up very frequently last night to urinate. Lungs: clear CV: regular with murmur AB: soft nt/nd +BS MSE: awake alert appropriate Plan: Diet advanced, IVF stopped, functional status improving. Hope for discharge in near future. Hospital Course Summary Disclaimer: The visit summary below is not to be considered part of the above Progress Note. Hospital Course: 03/07/18 Patient is admitted inpatient service in the care of the hospitalist. She currently remains nothing by mouth and has received IV fluids for hydration. Consultation placed to Dr. Vargas for surgical evaluation and recommendations At time of discharge medical care will return to primary care provider, Mayelin Saldivar at [facility] Addendum-taken to the operating room by Dr. Vargas - laparotomy with segmental small bowel resection 03/08/18. 03/08/18 Mild nausea and abdominal discomfort postoperatively; adequately managed with current medications. Blood pressure low normal overnight-fluid bolus being given this morning to stabilize. Persistent leukocytosis; afebrile; no intraoperative findings to suggest an infectious process. Nothing by mouth at present. Warm packs/cold packs added for symptomatic management of headache/neck discomfort. Mild hyponatremia has developed-adjust fluids to prevent further sodium loss. Discontinue D5 in fluids due to hyperglycemia 03/09/18 Blood pressure stable and urine output improved; stable to transfer out of ICU. Discontinue Romero catheter, remains nothing by mouth pending return of bowel function. 03/10/18 d/w Dr. Vargas - ok to advance diet to full liquids and then regular food for dinner. DC IVF with improved oral intake of liquids. Hgb stable @ 9.5. Calcium improving.
[2018-03-10] MEDS: HYDROCODONE/APAP 5mg/325mg TABLET PO PRN ×2 (15:22→20:55)
[2018-03-11] MEDS: LEVOTHYROXINE 112 MCG TABLET PO SCH (06:36)
[2018-03-11] MEDS: ONDANSETRON 4 MG/2 ML INJECTION IVP PRN (07:09)
[2018-03-11] MEDS: SALINE FLUSH 10ml SYRINGE IVF PRN ×2 (08:56→09:50)
[2018-03-11] MEDS: METOCLOPRAMIDE 10mg/2ml INJECTION IVP PRN (08:56)
--- NOTE | 2018-03-11 08:57 | General Surgery Progress Note ---
Subjective Patient reports: pain is less, bowel movement (documented soft formed stool of moderate size, although patient denies any BM since surgery), vomiting (this morning after taking the am meds. she had not been having much nausea till then and states it came on fairly sudden.) - Vital Signs Last Vital Signs Temp 98.1 F 03/11/18 07:31 Pulse 54 L 03/11/18 07:31 Resp 16 03/11/18 07:31 BP 134/84 03/11/18 07:31 Pulse Ox 96 03/11/18 07:31 - Laboratory Result Diagrams: 03/11/18 03:54 03/11/18 03:54 - Abnormal Exam Cardiovascular: murmur Abdominal: hypoactive bowel sounds (very rare bowel sounds this morning) - Normal Exam General: awake, alert, oriented Cardiovascular: regular rate Respiratory: clear bilaterally, no labored breathing Abdominal: soft, appropriately tender, incision(s) (Addison in tact, no erythema , ecchymosis, oozing) Psychiatric: normal affect Assessment and Plan (1) Small bowel obstruction Current Visit: Yes Status: Acute (2) Hypertension Current Visit: No Status: Chronic Qualifiers: Hypertension type: essential hypertension Qualified Code(s): I10 - Essential (primary) hypertension (3) Hypothyroid Current Visit: No Status: Chronic Qualifiers: Hypothyroidism type: unspecified Qualified Code(s): E03.9 - Hypothyroidism , unspecified Plan: Nice BM yesterday documented but patient denies having had BM since surgery. Limited bowel sounds this morning and an episode of emesis after her thyroid PO. Nausea less after Zofran and Reglan. Will watch her for possible ileus. She is already self-limiting PO intake this morning. Hospital Course Summary Disclaimer: The visit summary below is not to be considered part of the above Progress Note. Hospital Course: 03/07/18 Patient is admitted inpatient service in the care of the hospitalist. She currently remains nothing by mouth and has received IV fluids for hydration. Consultation placed to Dr. Vargas for surgical evaluation and recommendations At time of discharge medical care will return to primary care provider, Mayelin Saldivar at [facility] Addendum-taken to the operating room by Dr. Vargas - laparotomy with segmental small bowel resection 03/08/18. 03/08/18 Mild nausea and abdominal discomfort postoperatively; adequately managed with current medications. Blood pressure low normal overnight-fluid bolus being given this morning to stabilize. Persistent leukocytosis; afebrile; no intraoperative findings to suggest an infectious process. Nothing by mouth at present. Warm packs/cold packs added for symptomatic management of headache/neck discomfort. Mild hyponatremia has developed-adjust fluids to prevent further sodium loss. Discontinue D5 in fluids due to hyperglycemia 03/09/18 Blood pressure stable and urine output improved; stable to transfer out of ICU. Discontinue Romero catheter, remains nothing by mouth pending return of bowel function. 03/10/18 d/w Dr. Sam singh to advance diet to full liquids and then regular food for dinner. DC IVF with improved oral intake of liquids. Hgb stable @ 9.5. Calcium improving.
[2018-03-11] MEDS ORDERED: ONDANSETRON 4 MG/2 ML INJECTION IVP PRN (09:07)
[2018-03-11] MEDS: ENOXAPARIN 40 MG/0.4 ML INJECTION SQ SCH (09:50)
[2018-03-11] MEDS: PANTOPRAZOLE 40 MG INJECTION IVP SCH (09:50)
--- NOTE | 2018-03-11 10:18 | XRay Report ---
Indication: nausea/vomiting, bowel obstruction postop PROCEDURE: XR KUB: Encounter: Initial Comparison: Radiographs dated March 07, 2018 Findings: Midline abdominal surgical skin gerri are new. The visualized lung bases are clear. The bowel gas pattern is nonobstructive and nonspecific. Gas is seen in nondilated small and large bowel to the level of the rectum. Large amount of stool is seen throughout the colon. Impression: Nonobstructive nonspecific bowel gas pattern. .
[2018-03-11] MEDS ORDERED: BISACODYL 10 MG SUPPOSITORY RECTALLY PRN (11:06)
[2018-03-11] MEDS ORDERED: BISACODYL 10 MG SUPPOSITORY RECTALLY ONE (11:06)
[2018-03-11] MEDS ORDERED: FLUTICASONE NASAL SPRAY 50mcg EA NOSTRIL PRN (11:07)
--- NOTE | 2018-03-11 11:12 | Progress Note ---
- Date 03/11/18 Subjective: Aimee has not been having a very good morning. She slept very well last night, but soon after taking her Synthroid she began to have abdominal pain and became nauseated. She vomited about 100 mL. She was given Zofran and Reglan. A KUB was ordered. By the time I arrived, her pain and nausea had improved though hadn't completely subsided. She was able to eat crackers and drink water, however. She stated that she's been passing flatus this morning. We reviewed the KUB. She has not been on a bowel regimen. She denies other complaints. Objective Vital signs: Temperature 98.1 F 03/11/18 07:31 Pulse Rate 54 L 03/11/18 07:31 Respiratory Rate 16 03/11/18 07:31 Blood Pressure 134/84 03/11/18 07:31 Pulse Oximetry 96 03/11/18 07:31 Rhythm: Normal Sinus Rhythm Height/Weight/BMI: Height 1.63 m Weight 63.9 kg Body Mass Index 24.3 - Constitutional Present: no acute distress, well nourished, well developed - Routine HEENT Exam Head: Present: normocephalic Eye: Present: PERRL. Absent: conjunctival icterus, scleral injection ENT: Present: mucous membranes moist - Routine Respiratory Exam Present: CTA bilaterally - Routine Cardiovascular Exam Present: RRR, S1, S2, murmur - Routine Abdominal Exam Present: soft. Absent: normoactive bowel sounds (hyperactive) Comments: incision is stapled; no erythema, swelling, or drainage - Routine Extremities Exam Present: no edema - Routine Back/Spine/Pelvis Exam Back/Spine: Present: full ROM - Routine Musculoskeletal Exam Musculoskeletal: Present: moving extremities well - Routine Skin Exam Present: intact, dry, warm - Routine Neurological Exam Present: alert, oriented X3, moving all extremities, normal speech - Routine Psychiatric Exam Present: normal affect, normal thought process, cooperative Results - Labs CBC & Chem 7: 03/11/18 03:54 03/11/18 03:54 Assessment and Plan Assessment and Plan: Impression Small bowel obstruction s/p laparotomy with small bowel resection 03/08/18 Leukocytosis (POA) - resolved Hypertension Congenital bicuspid aortic valve Dyslipidemia Hypothyroidism Iron def anemia Constipation Hyponatremia-03/08/18 Hyperglycemia-03/08/18 Hypophosphatemia-03/09/18 Plan N/V and pain she experienced this morning is improving. Will give Dulcolax suppository now and start MiraLAX and Senna Plus regularly. KUB personally reviewed - no evidence of obstruction; fair amount of stool noted. Labs stable; mild hyponatremia and hypocalcemia. Discussed with Con Oconnell APRN and with Dr. Kumar. Resume home ASA and medications for allergic rhinitis. DVT Prophylaxis: SCD's, Lovenox GI Prophylaxis: Protonix Resuscitation Status: Full Code - Time spent with patient Time with patient PN: 25 minutes - Physician Narrative Physician: Alfie Kumar MD Narrative: Date: 03/11/18 Time: 1652 Have independently interviewed and examined pt. Chart reviewed. Case discussed with my PROGRAM ADMIN. Care plan developed with my supervision; agree with above. Doing better this afternoon. Not having the nausea she was this am. Passing flatus (no stool). Was able to eat more, but taking foods slowly to minimize problems. Ab pain controlled. Breathing well. Has been ambulating. No f/c. Lungs: clear bilaterally CV: regular AB: soft nt/nd BS present MSE: awake alert appropriate Radiology: KUB showing nonspecific changes Plan: Continue with supportive post op care. Advise to continue cautious oral intake (as she has done since breakfast) - smaller intake at one time, small snacks between meals. Continue with ambulation as will help bowel function. Colonic stimulation with Dulcolax and Miralax/Senna added routinely. Questions answered with her present. Hospital Course Summary Disclaimer: The visit summary below is not to be considered part of the above Progress Note. Hospital Course: 03/07/18 Patient is admitted inpatient service in the care of the hospitalist. She currently remains nothing by mouth and has received IV fluids for hydration. Consultation placed to Dr. Vargas for surgical evaluation and recommendations At time of discharge medical care will return to primary care provider, Mayelin Saldivar at [facility] Addendum-taken to the operating room by Dr. Vargas - laparotomy with segmental small bowel resection 03/08/18. 03/08/18 Mild nausea and abdominal discomfort postoperatively; adequately managed with current medications. Blood pressure low normal overnight-fluid bolus being given this morning to stabilize. Persistent leukocytosis; afebrile; no intraoperative findings to suggest an infectious process. Nothing by mouth at present. Warm packs/cold packs added for symptomatic management of headache/neck discomfort. Mild hyponatremia has developed-adjust fluids to prevent further sodium loss. Discontinue D5 in fluids due to hyperglycemia 03/09/18 Blood pressure stable and urine output improved; stable to transfer out of ICU. Discontinue Romero catheter, remains nothing by mouth pending return of bowel function. 03/10/18 d/w Dr. Vargas - ok to advance diet to full liquids and then regular food for dinner. DC IVF with improved oral intake of liquids. Hgb stable @ 9.5. Calcium improving. 03/11/18 N/V and pain she experienced this morning is improving. Will give Dulcolax suppository now and start MiraLAX and Senna Plus regularly. KUB personally reviewed - no evidence of obstruction; fair amount of stool noted. Labs stable; mild hyponatremia and hypocalcemia.
[2018-03-11] MEDS: OLMESARTAN 20 MG TABLET PO SCH ×2 (11:19→20:23)
[2018-03-11] MEDS: POLYETHYL GLYCOL 3350 17gm PACKET PO SCH (11:21)
--- NOTE | 2018-03-11 12:11 | Progress Note ---
DATE: 03/10/2018 FINDINGS Mrs. Peters was seen this evening on rounds. She has been passing flatus. She denies nausea. She states that she is hungry. VITALS: Afebrile. Normotensive. Please refer to EMR. ABDOMEN: Soft. Minimal incisional tenderness is present. Her incision is clean, dry and intact. Dressing was removed. ASSESSMENT 68-year-old female status post diagnostic laparoscopy, laparotomy and small bowel resection; patient doing well. PLAN Will go ahead and advance diet to a regular diet at this time. Continue with current care. If tomorrow she is tolerating a regular diet and her pain is well controlled with p.o. pain meds, will likely DC to home. Pathology is still pending. I am pleased with the patient's progress at this time. MASON
--- NOTE | 2018-03-11 12:34 | XRay Report ---
Indication: possible ileus PROCEDURE: XR abdomen 1V: Encounter: Initial Comparison: March 11, 2018 at 0926 Findings: No free air. Bowel gas pattern remains stable with gas in nondilated small and large bowel throughout the abdomen. No significant air-fluid levels. The pelvis was not included in the [id number]. Surgical skin gerri are redemonstrated. Moderate stool in the right and left colon. Impression: Radiographically nonobstructive bowel gas pattern. .
[2018-03-11] MEDS: HYDROCODONE/APAP 5mg/325mg TABLET PO PRN (15:11)
--- NOTE | 2018-03-11 19:42 | Progress Note ---
DATE OF SERVICE 03/11/2018 FINDINGS Mrs. Peters was seen this evening on rounds. The patient states that earlier this morning she did have an episode of some nausea and vomiting. Currently she is feeling well and is "hungry." She has no nausea. PHYSICAL EXAM VITAL SIGNS: Afebrile, normotensive. Please refer to EMR. CHEST: Clear to auscultation bilaterally. HEART: Regular rate and rhythm. Normal S1 and S2 without gallops, murmurs or clicks. ABDOMEN: Soft. Minimal incisional tenderness. No evidence for guarding or rebound. LABORATORY/RADIOGRAPHIC EVALUATION Patient had a CBC and BMP today that were unremarkable. She did have a KUB obtained earlier today that did not reveal evidence for significant ileus. One could see air throughout her colon. Findings were nonspecific. ASSESSMENT 68-year-old female status post diagnostic laparoscopy, laparotomy with lysis of adhesions, small-bowel resection. 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 Patient overall doing well. PLAN We did go ahead and let the patient eat a regular supper this evening, given her improvement. Will continue to follow from a clinical standpoint. I am overall pleased with the patient's progress at this time. MASON
[2018-03-11] MEDS: SENNA + DOCUSATE TABLET PO SCH (20:23)
[2018-03-11] MEDS ORDERED: CETIRIZINE 10 MG TABLET PO SCH (21:00)
[2018-03-11] MEDS ORDERED: NON-FORMULARY MEDICATION 1 EACH EACH (Cetirizine Hcl [Zyrtec] 10 MG) PO SCH (21:00)
[2018-03-12] MEDS: LEVOTHYROXINE 112 MCG TABLET PO SCH (05:57)
[2018-03-12] MEDS ORDERED: PANTOPRAZOLE 20 MG TABLET PO SCH (06:30)
--- NOTE | 2018-03-12 07:48 | General Surgery Progress Note ---
Subjective Patient reports: feels better, pain is less, tolerating a regular diet (states she ate about 1/3 of her supper last night without nausea), voiding w/o difficulty, flatus (and a "smear" of stool), afebrile - Vital Signs Last Vital Signs Temp 98.3 F 03/12/18 07:35 Pulse 64 03/12/18 07:35 Resp 16 03/12/18 07:35 BP 136/64 03/12/18 07:35 Pulse Ox 96 03/12/18 07:35 - Laboratory Result Diagrams: 03/12/18 04:11 03/12/18 04:11 - Abnormal Exam Cardiovascular: murmur - Normal Exam General: awake, alert, oriented Cardiovascular: regular rate Abdominal: BS normo active x4, soft, non-tender, incision(s) (midline CDI gerri present, not erythema, ecchymosis) Psychiatric: normal affect Assessment and Plan (1) Small bowel obstruction Current Visit: Yes Status: Acute (2) Hypertension Current Visit: No Status: Chronic Qualifiers: Hypertension type: essential hypertension Qualified Code(s): I10 - Essential (primary) hypertension (3) Hypothyroid Current Visit: No Status: Chronic Qualifiers: Hypothyroidism type: unspecified Qualified Code(s): E03.9 - Hypothyroidism , unspecified Plan: Doing better today, no nausea since the single episode yesterday morning. Tolerated regular diet for supper. She feels like she will have a BM today after some Dulcolax tabs last night. Will see how she does today, consider discharge late today or tomorrow. F/U March 18 for staple removal. Hospital Course Summary Disclaimer: The visit summary below is not to be considered part of the above Progress Note. Hospital Course: 03/07/18 Patient is admitted inpatient service in the care of the hospitalist. She currently remains nothing by mouth and has received IV fluids for hydration. Consultation placed to Dr. Vargas for surgical evaluation and recommendations At time of discharge medical care will return to primary care provider, Mayelin Saldivar at [facility] Addendum-taken to the operating room by Dr. Vargas - laparotomy with segmental small bowel resection 03/08/18. 03/08/18 Mild nausea and abdominal discomfort postoperatively; adequately managed with current medications. Blood pressure low normal overnight-fluid bolus being given this morning to stabilize. Persistent leukocytosis; afebrile; no intraoperative findings to suggest an infectious process. Nothing by mouth at present. Warm packs/cold packs added for symptomatic management of headache/neck discomfort. Mild hyponatremia has developed-adjust fluids to prevent further sodium loss. Discontinue D5 in fluids due to hyperglycemia 03/09/18 Blood pressure stable and urine output improved; stable to transfer out of ICU. Discontinue Romero catheter, remains nothing by mouth pending return of bowel function. 03/10/18 d/w Dr. Vargas - ok to advance diet to full liquids and then regular food for dinner. DC IVF with improved oral intake of liquids. Hgb stable @ 9.5. Calcium improving. 03/11/18 N/V and pain she experienced this morning is improving. Will give Dulcolax suppository now and start MiraLAX and Senna Plus regularly. KUB personally reviewed - no evidence of obstruction; fair amount of stool noted. Labs stable; mild hyponatremia and hypocalcemia.
[2018-03-12] MEDS: OLMESARTAN 20 MG TABLET PO SCH (08:36)
[2018-03-12] MEDS: POLYETHYL GLYCOL 3350 17gm PACKET PO SCH (08:36)
[2018-03-12] MEDS: SENNA + DOCUSATE TABLET PO SCH (08:36)
[2018-03-12] MEDS: ENOXAPARIN 40 MG/0.4 ML INJECTION SQ SCH (08:37)
[2018-03-12] MEDS ORDERED: ASPIRIN *EC* 81 MG TABLET PO SCH (09:00)
--- NOTE | 2018-03-12 09:28 | Progress Note ---
- Date 03/12/18 Subjective: F/U: small bowel obstruction, s/p laparotomy with small bowel resection on . Aimee is seen this morning while eating breakfast. She reports that she is feeling much better today and states that her oral drive is returning. She remains afebrile and labs are stable. KUB from 03/11/18 revealed nonobstructive bowel gas pattern. She continues to pass gas but has not had a BM as yet. She admits to some mild incisional pain with movement but otherwise denies any other concerns or complaints. No chest pain, shortness of breath, nausea, vomiting or dysuria. Anticipate discharge in near future once bowels begin to move. Objective Vital signs: Temperature 98.3 F 03/12/18 07:35 Pulse Rate 64 03/12/18 07:35 Respiratory Rate 16 03/12/18 07:35 Blood Pressure 136/64 03/12/18 07:35 Pulse Oximetry 96 03/12/18 07:35 Rhythm: Normal Sinus Rhythm Height/Weight/BMI: Height 5 ft 4 in Weight 140 lb 14.006 oz Body Mass Index 24.3 Comments: Sitting in recliner, eating breakfast. - Constitutional Present: no acute distress, well nourished, well developed, cooperative - Routine HEENT Exam Head: Present: normocephalic, atraumatic Eye: Present: PERRL, conjunctival icterus ENT: Present: mucous membranes moist, oropharynx clear - Routine Respiratory Exam Present: CTA bilaterally - Routine Cardiovascular Exam Present: RRR, murmur - Routine Abdominal Exam Present: soft, normoactive bowel sounds, non tender Comments: incision(s) (midline CDI gerri present, not erythema, ecchymosis) - Routine Extremities Exam Present: no edema - Routine Back/Spine/Pelvis Exam Back/Spine: Present: full ROM. Absent: vertebral tenderness - Routine Musculoskeletal Exam Musculoskeletal: Present: no clubbing or cyanosis, moving extremities well - Routine Skin Exam Present: dry, warm Comments: Afebrile. - Routine Neurological Exam Present: alert, oriented X3, moving all extremities, hearing grossly intact, normal speech - Routine Lymphatic Exam Lymphatic: Absent: lymphedema - Routine Psychiatric Exam Present: cooperative Results - Labs CBC & Chem 7: 03/12/18 04:11 03/12/18 04:11 Assessment and Plan Assessment and Plan: Impression Small bowel obstruction s/p laparotomy with small bowel resection 03/08/18 Leukocytosis (POA) - resolved Hypertension Congenital bicuspid aortic valve Dyslipidemia Hypothyroidism Iron def anemia Constipation Hyponatremia-03/08/18 Hyperglycemia-03/08/18 Hypophosphatemia-03/09/18 Plan Patient is doing much better today. Nausea and vomiting has resolved and she is tolerating oral intake well. KUB on 03/11/18 revealed non-obstructive bowel pattern. Will continue bowel motivation with anticipation of bowel movement today. Continue to encourage ambulation. Labs stable. Discussed with Dr. Vargas who anticipates discharge in the near future, hopefully today, once patient's bowels move. DVT Prophylaxis: SCD's, Lovenox GI Prophylaxis: Protonix Resuscitation Status: Full Code - Time spent with patient Time with patient PN: 30 minutes - Physician Narrative Physician: Alfie Kumra MD Narrative: Date: 03/12/18 Time: 1803 Have independently interviewed and examined pt. Chart reviewed. Case discussed with dr Vargas and my PA. Care plan developed with my supervision; agree with above. Doing well today. Had much better morning-no nausea. Pain controlled. Passing flatus and did have stool output. Eating well. Breathing well. Ambulating well. Lungs: clear CV: regular AB: soft nt BS present MSE: awake alert appropriate Plan: Medically stable for discharge to home. Diet as tolerated. Increase activities as able. Patient will f/u with Dr Vargas on 03/18/18. See orders for details. Hospital Course Summary Disclaimer: The visit summary below is not to be considered part of the above Progress Note. Hospital Course: 03/07/18 Patient is admitted inpatient service in the care of the hospitalist. She currently remains nothing by mouth and has received IV fluids for hydration. Consultation placed to Dr. Vargas for surgical evaluation and recommendations At time of discharge medical care will return to primary care provider, Mayelin [facility]divar at [facility] Addendum-taken to the operating room by Dr. Vargas - laparotomy with segmental small bowel resection 03/08/18. 03/08/18 Mild nausea and abdominal discomfort postoperatively; adequately managed with current medications. Blood pressure low normal overnight-fluid bolus being given this morning to stabilize. Persistent leukocytosis; afebrile; no intraoperative findings to suggest an infectious process. Nothing by mouth at present. Warm packs/cold packs added for symptomatic management of headache/neck discomfort. Mild hyponatremia has developed-adjust fluids to prevent further sodium loss. Discontinue D5 in fluids due to hyperglycemia 03/09/18 Blood pressure stable and urine output improved; stable to transfer out of ICU. Discontinue Romero catheter, remains nothing by mouth pending return of bowel function. 03/10/18 d/w Dr. Vargas - ok to advance diet to full liquids and then regular food for dinner. DC IVF with improved oral intake of liquids. Hgb stable @ 9.5. Calcium improving. 03/11/18 N/V and pain she experienced this morning is improving. Will give Dulcolax suppository now and start MiraLAX and Senna Plus regularly. KUB personally reviewed - no evidence of obstruction; fair amount of stool noted. Labs stable; mild hyponatremia and hypocalcemia. 03/12/18 Patient is doing much better today. Nausea and vomiting has resolved and she is tolerating oral intake well. Will continue bowel motivation with anticipation of bowel movement today. Continue to encourage ambulation. Labs stable. Discussed with Dr. Vargas who anticipates discharge in the near future, hopefully today, once patient's bowels move.
[2018-03-12] MEDS: HYDROCODONE/APAP 5mg/325mg TABLET PO PRN ×2 (09:48→18:39)
--- NOTE | 2018-03-12 10:25 | Progress Note ---
DATE 03/12/2018 FINDINGS Ms. Peters was seen this morning on rounds. She was without complaints. She was eating a regular diet without difficulty. She has had no nausea or vomiting. Has had flatus but no BM. OBJECTIVE VITALS: Afebrile. Normotensive. ABDOMEN: Soft, nontender. She has no evidence for guarding or rebound. LABORATORY/RADIOGRAPHIC EVALUATION Patient had CBC and BMP today that were unremarkable. ASSESSMENT 68-year-old female status post exploratory laparotomy and small bowel resection. Patient currently doing well. PLAN If patient does have a BM today, she will likely be discharged to home this evening. I am pleased with the patient's progress at this time. 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 SHANAD
[2018-03-12] MEDS ORDERED: FLEET PHOSPHO - SODA ENEMA 133ml PR PRN (13:48)
[2018-03-12 15:59] VITALS: BP 145/81; PULSE 65; RESP 18; TEMP 96.3; O2SAT 97
--- NOTE | 2018-03-12 18:41 | Discharge Summary ---
Discharge Information Date of admission: 03/07/18 00:41 Anticipated date of discharge: 03/12/18 Attending Physician: Alfie Kumar MD Primary care physician: STEPHANIE Beebe Consults: Physician Consult: Chan Vargas Reason For Exam: ? 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 POSTOPERATIVE DIAGNOSIS Abnormal CT scan revealing radiographic evidence for small bowel obstruction, abdominal pain, intraabdominal adhesion, multiple small bowel mucosal-based lesions resulting in component of stenosis/narrowing. PROCEDURE: Diagnostic laparoscopy, conversion to open laparotomy with lysis of adhesion, segmental small bowel resection with primary anastomosis. - Laboratory Labs: Admit Lab 03/06/18 22:41 WBC 14.6 H D Hgb 12.6 Hct 36.7 MCV 91.5 Plt Count 394 Neutrophils % (Manual) 85.0 H Band Neutrophils % 1.0 Lymphocytes % (Manual) 14.0 L Admit Lab 03/06/18 03/06/18 22:41 22:41 Sodium 137 Potassium 4.1 Chloride 103 Carbon Dioxide 25 Anion Gap 9 BUN 27.0 H Creatinine 0.8 Estimated Creat Clear 50 GFR Calculation 72 BUN/Creatinine Ratio 34 H Glucose 121 H Calculated Osmolality 270 Calcium 9.4 Total Bilirubin 1.20 Unconjugated Bilirubin 1.00 AST 32 ALT 22 Alkaline Phosphatase 66 Total Protein 7.5 Albumin 4.3 Globulin 3.2 Albumin/Globulin Ratio 1.3 Lipase 139 TSH 03/08/18 04:09 TSH 0.56 03/12/18 04:11 03/12/18 04:11 - Radiology Radiology: Date of Exam: 03/06/18 Type of Exam: XR KUB w upright Findings: Scattered air-fluid levels seen in the small and large bowel. Moderate stool in the colon. Dilated small bowel left abdomen up to 3.5 cm in diameter. Lung bases are grossly clear. Degenerative change and scoliosis in the lumbar spine with posterior L4-L5 fusion and decompression. Impression: Findings concerning for an early or partial small bowel obstruction. Date of Exam: 03/06/18 Type of Exam: CT abdomen pelvis w con Findings: Mild atelectasis in the lung bases. The liver is normal. The gallbladder is unremarkable. The spleen, pancreas and adrenal glands are within normal limits. Kidneys are normal apart from a small left lower pole renal cyst. No abdominal or pelvic 950. Bladder is normal. Uterus is unremarkable. No free fluid. There are multiple fluid-filled loops of small bowel and fluid within the cecum and right colon. Transition from dilated to nondilated small bowel in the left anterior pelvis seen on axial image #70. No free air. Postoperative changes in the lower lumbar spine. Impression: Evidence of a partial small bowel obstruction with transition in the left lower pelvis. There may be a superimposed gastroenteritis. Date of Exam: 03/07/18 Type of Exam: XR abdomen 2V Findings: Increased overall bowel gas seen in small and large bowel. Contrast material seen in the renal collecting systems and bladder. There are persistent small bowel air-fluid levels with small bowel dilatation up to 3.2 cm, similar to the prior exam. Lung bases are clear. No free air. Impression: Persistent small bowel air-fluid levels probably due to partial small bowel obstruction. Date of Exam: 03/11/18 Type of Exam: XR KUB Findings: Midline abdominal surgical skin gerri are new. The visualized lung bases are clear. The bowel gas pattern is nonobstructive and nonspecific. Gas is seen in nondilated small and large bowel to the level of the rectum. Large amount of stool is seen throughout the colon. Impression: Nonobstructive nonspecific bowel gas pattern. - Date of Exam: 03/11/18 Type of Exam: XR abdomen 1V Findings: No free air. Bowel gas pattern remains stable with gas in nondilated small and large bowel throughout the abdomen. No significant air-fluid levels. The pelvis was not included in the [id number]. Surgical skin gerri are redemonstrated. Moderate stool in the right and left colon. Impression: Radiographically nonobstructive bowel gas pattern. 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 Patient reports she has had intermittent episodes of abdominal pain since October 2017. She reports pain is often left sided. She underwent a EGD and colonoscopy in November 2017 and [address] care of [address] Nicolasa Aguilar. At that time she also had a CT scan of the abdomen and pelvis. All of the studies are reported to be negative. The pain kind of " down" over the last few months. Over the past 2 weeks she has had some mild discomfort, however, significant change yesterday following lunch. She developed severe left lower quadrant abdominal pain followed by 2 episodes of vomiting. She felt like she had fever and chills at that time. Pain got so severe last evening. She presented to [facility] emergency room for acute evaluation. Only emergency room further evaluation was performed. CBC revealed leukocytosis with a white count of 18.6, 85% neutrophils, 1% band. Chemistry panel normal other than glucose of 121. LFTs and liver function is normal, lipase normal. Urinalysis unremarkable. CT scan of the abdomen and pelvis revealed evidence of a partial small bowel obstruction with transition in the left lower pelvis. She was started on IV fluids and given pain medication. She was admitted under the tele-hospitalist overnight for ongoing evaluation and treatment. Aimee is seen this morning while resting in bed. She reports she has continued left lower quadrant pain However, it is decreased now 2-3 out of 10. She also reports having an unintentional weight loss over the last 2 years. She is unsure exactly how much greater than 10 pounds. For complete details of the H&P refer to that document. Objective Vital signs: Temperature 96.3 F L 03/12/18 15:58 Pulse Rate 65 03/12/18 15:58 Respiratory Rate 18 03/12/18 15:58 Blood Pressure 145/81 H 03/12/18 15:58 Pulse Oximetry 97 03/12/18 15:58 Rhythm: Normal Sinus Rhythm Height/Weight/BMI: Height 1.63 m Weight 62.9 kg Body Mass Index 24.3 Hospital Course This is a general summary of the patient's hospital course. For more details refer to the complete medical record. Hospital course: 03/07/18 Patient is admitted inpatient service in the care of the hospitalist. She currently remains nothing by mouth and has received IV fluids for hydration. Consultation placed to Dr. Vargas for surgical evaluation and recommendations At time of discharge medical care will return to primary care provider, Mayelin Saldivar at [facility] Addendum-taken to the operating room by Dr. Vargas - laparotomy with segmental small bowel resection 03/08/18. 03/08/18 Mild nausea and abdominal discomfort postoperatively; adequately managed with current medications. Blood pressure low normal overnight-fluid bolus being given this morning to stabilize. Persistent leukocytosis; afebrile; no intraoperative findings to suggest an infectious process. Nothing by mouth at present. Warm packs/cold packs added for symptomatic management of headache/neck discomfort. Mild hyponatremia has developed-adjust fluids to prevent further sodium loss. Discontinue D5 in fluids due to hyperglycemia 03/09/18 Blood pressure stable and urine output improved; stable to transfer out of ICU. Discontinue Romero catheter, remains nothing by mouth pending return of bowel function. 03/10/18 d/w Dr. Vargas - ok to advance diet to full liquids and then regular food for dinner. DC IVF with improved oral intake of liquids. Hgb stable @ 9.5. Calcium improving. 03/11/18 N/V and pain she experienced this morning is improving. Will give Dulcolax suppository now and start MiraLAX and Senna Plus regularly. KUB personally reviewed - no evidence of obstruction; fair amount of stool noted. Labs stable; mild hyponatremia and hypocalcemia. 03/12/18 Patient is doing much better today. Nausea and vomiting has resolved and she is tolerating oral intake well. Will continue bowel motivation with anticipation of bowel movement today. Continue to encourage ambulation. Labs stable. Discussed with Dr. Vargas who anticipates discharge in the near future, hopefully today, once patient's bowels move. Doing well this evening. Eating well without nausea. Pain controlled. Breathing well. Ambulating well. Passing stool. Medically stable for discharge to home. Diet as tolerated. Increase activities as able. Patient will f/u with Dr Vargas on 03/18/18. See orders for details. Time spent with patient: discharge greater than 30 minutes Resuscitation Status: Full Code Discharge Plan - Discharge Disposition Discharge Date: 03/12/18 Disposition: 01 Discharged Home, Self-Care *Condition: Improved Reason For Visit (Visit label in EMR): SBO - Discharge Medications *Discharge Medications: New Hydrocodone/APAP 5/325 [[place] 5/325] 1 - 2 tab PO Q5H PRN #14 tab PRN Reason: Pain Ondansetron HCl 4 mg PO Q6HR PRN #10 tab PRN Reason: Nausea Bisacodyl Supp [Dulcolax] 10 mg RECTALLY DAILY PRN suppositor PRN Reason: Constipation Milk of Magnesia [Mom] 30 ml PO DAILY PRN udc PRN Reason: Constipation PEG 3350 17gm PACKET [Miralax] 17 gm PO DAILY PRN packet PRN Reason: Constipation Senna + Docusate [Senna Plus Tablet] 1 tab PO BID PRN tab PRN Reason: Constipation Continue Cetirizine HCl [Zyrtec] 10 mg PO HS aspirin 81 mg tablet,delayed release 81 mg PO DAILY tab omega 1-rtb-ofi-fish oil 1,000 mg (120 mg-180 mg) capsule 3 cap PO DAILY cap nitrofurantoin monohydrate/macrocrystals 100 mg capsule 1 cap PO BID PRN cap PRN Reason: uti olmesartan 20 mg tablet 10 mg PO BID tab levothyroxine 112 mcg tablet 112 mcg PO DAILY #90 tab calcium carbonate 600 mg calcium (1,500 mg) tablet 1,200 mg PO DAILY tab Vitamin D3 (cholecalciferol) 1,000 unit capsule 1,000 unit PO DAILY multivitamin tablet 1 cap PO QAM Flonase (Fluticasone) 50 mcg nasal spray 100 mcg INTRANASAL BID PRN PRN Reason: Nasal Congestion No Action red yeast rice 600 mg tablet 1,200 mg PO DAILY tab niacin ER 500 mg capsule,extended release 500 mg PO .q HS cap - Discharge Packet/Instructions *Diet: As tolerated. *Activity: Do not drive, operate machinery for 24 hours after surgery or while taking pain medication. *Pain Management/Treatment: Follow prescriptions as prescribed *Wound Care: Leave incision open to air. May shower, no tub bath till gerri removed Additional Instructions: No lifting more than 25 lbs for 4 weeks after surgery. *Expected Signs/Symptoms: Tenderness along incision. Fatigue for several weeks. *Notify Physician if: 1. Call your surgeon if you are having problems relating to your surgery at [phone]. 2. Problems such as: Temp above 101.5 degrees. You develop redness, excessive swelling of the incision, increasing pain or excessive foul smelling drainage. 3. If the office is closed, call [facility] at [phone] and have your Surgeon paged. *During Business Hours Contact: Call your surgeon at at [phone]. *After Business Hours Contact: If the office is closed, call [facility] at [phone] and have your Surgeon paged. *Pending Lab/Results: No Pending Lab - Referrals/Follow Up *Referrals/Follow Up: Mayelin Blandon PA [Primary Care Provider] - (As needed for medical concerns. ) Flora Oconnell APRN [Advanced Practice Nurse] - 03/18/18 11:30 am (staple removal and general follow up) - Patient Handouts - Dismissal Complete Discharge Instructions are:: Complete Physician Narrative - Narrative Physician: Alfie Kumar MD Attestation Narrative: Date: 03/12/18 Time: 1837 I have independently interviewed and examined patient prior to discharge. See my progress note for details. Medically stable for discharge to home.
--- NOTE | 2018-03-12 19:04 | Progress Note ---
DATE OF SERVICE 03/12/2018 FINDINGS Ms. Peters on evening rounds states that she has had a bowel movement. She has had no element of nausea or vomiting today. She denies any element of abdominal pain. PHYSICAL EXAM ABDOMEN: Soft, nontender. ASSESSMENT Status post exploratory laparotomy, small bowel resection, patient doing well. PLAN Discharge to home. Please refer to discharge instructions within EMR if detail needed. MASON
== END 2018-03-12 20:15 | disposition home or self-care (01) | DRG 330 ==
LOC: ED 21:05 → EDHOLD 03-07 00:41 → SUATTDRO 03-07 00:41 → SRG 03-07 00:51 → CCU 03-07 17:53 → SRG 03-09 12:00
PROVIDERS: ADMIT Hospitalist; ATTEND Hospitalist